=== PATIENT | female | born 1935 | race Caucasian/White ===

== ENCOUNTER 2017-07-09 20:00 | Observation (INO) | payer OTHER ==
[2017-07-09] VITALS (8 sets, daily range): BP systolic 129–149; BP diastolic 64–83; PULSE 60–70; RESP 16–20; TEMP 98.7; O2SAT 97–100
[~2017-07-09 20:00] MED LIST: CEFU1TAB18 PO; LEVO.075 PO
[2017-07-09] MEDS ORDERED: IOHEXOL 350 MG/ML 10 ML VIAL (for RAD DIAG) IVCONTRAST ONE (20:01)
[2017-07-09] MEDS ORDERED: SODIUM CHLORIDE 0.9% FLUSH 10 ML FLUSH IVF PRN (20:15)
--- NOTE | 2017-07-09 20:19 | RADRPT ---
EXAM DATE/TIME: 07/09/2017 20:09 [facility] COMPARISON: No previous studies available for comparison. INDICATIONS : Stroke Alert. Aphasia. RADIATION DOSE: 38.07 CTDIvol (mGy) MEDICAL HISTORY : Non-responsive. SURGICAL HISTORY : Non-responsive. ENCOUNTER: Initial ACUITY: 1 day PAIN SCALE: Non-responsive LOCATION: cranial TECHNIQUE: Multiple contiguous axial images were obtained of the head. Using automated exposure control and adj ustment of the mA and/or kV according to patient size, radiation dose was kept as low as reasonably a chievable to obtain optimal diagnostic quality images. DICOM format image data is available electro nically for review and comparison. FINDINGS: CEREBRUM: The ventricles are normal for age. No evidence of midline shift, mass lesion, hemorrhage or acute in farction. No extra-axial fluid collections are seen. Chronic periventricular white matter changes ar e noted. POSTERIOR FOSSA: The cerebellum and brainstem are intact. The 4th ventricle is midline. The cerebellopontine angle i s unremarkable. EXTRACRANIAL: Mild mucoperiosteal thickening of the maxillary, ethmoid and frontal air cells. SKULL: The calvaria is intact. No evidence of skull fracture. CONCLUSION: 1. No acute intracranial abnormality. 2. Atrophy and chronic white matter changes. 3. Mild sinus disease. Report called to Dr. Fernandez at 8: 14 PM Terrance Dean MD on July 09, 2017 at 20:13 Board Certified Radiologist. This report was verified electronically.
--- NOTE | 2017-07-09 20:26 | PD ---
HPI . Altered mental status Chief Complaint: altered mental status Time Seen by Provider: 20:02 Travel History International Travel<30 days: No Contact w/Intl Traveler<30days: No Traveled to known affect area: No History of Present Illness HPI 82-year-old female history dementia became acutely unresponsive verbally while at dinner. Patient transported via EMS combative and otherwise nonfocal motor, repeating herself only answering yes and no. Extent the patient's dementia unknown. Patient reportedly had some alcohol at dinner. Further history unobtainable from patient secondary to altered mental status [facility] Past Medical History Narrative Medical Past medical history reviewed Asthma: No Blood Disorders: No Heart Rhythm Problems: No Cardiovascular Problems: No High Cholesterol: No Chemotherapy: No Chest Pain: No Congestive Heart Failure: No COPD: No Diabetes: No Diminished Hearing: No Endocrine: Yes Genitourinary: No Immune Disorder: No Musculoskeletal: No Neurologic: No Psychiatric: No Reproductive: No Respiratory: No Radiation Therapy: No Sleep Apnea: No Thyroid Disease: Yes Social History Alcohol Use: Yes Tobacco Use: No (UNABLE TO ASSESS ) Substance Use: No Allergies-Medications (Allergen,Severity, Reaction): Coded Allergies: No Known Allergies (Unverified Allergy, Unknown, 07/09/17) Reported Meds & Prescriptions Reported Meds & Active Scripts Active Synthroid (Levothyroxine Sodium) 75 Mcg Tab 75 Mcg PO DAILY@0600 30 Days Narrative Medication Allergies and medications reviewed Review of Systems General / Constitutional: No: Fever Eyes: No: Visual changes HENT: No: Headaches Cardiovascular: No: Chest Pain or Discomfort Respiratory: No: Shortness of Breath Gastrointestinal: No: Abdominal Pain Genitourinary: No: Dysuria Musculoskeletal: No: Pain Skin: No Rash Neurologic: No: Weakness Psychiatric: No: Depression Endocrine: No: Polydipsia Hematologic/Lymphatic: No: Easy Bruising Physical Exam Exam Limitations: Altered Mental Status, Poor Historian Narrative GENERAL: Awake and confused, combative SKIN: Warm and dry. Color is normal no diaphoresis cyanosis or pallor HEAD: Atraumatic. Normocephalic. EYES: Pupils equal and round 3 mm reactive. No scleral icterus. No injection or drainage. EOMI ENT: No nasal bleeding or discharge. Mucous membranes pink and moist. NECK: Trachea midline. No JVD. Supple full range of motion CARDIOVASCULAR: Regular rate and rhythm. S1-S2 no murmurs or gallops RESPIRATORY: No accessory muscle use. Clear to auscultation. Breath sounds equal bilaterally. GASTROINTESTINAL: Abdomen soft, non-tender, nondistended. Hepatic and splenic margins not palpable. MUSCULOSKELETAL: Extremities without clubbing, cyanosis, or edema. No obvious deformities. NEUROLOGICAL: Awake and alert. Motor grossly nonfocal PSYCHIATRIC: Confused Data Data Last Documented VS Vital Signs Date Time Temp Pulse Resp B/P (MAP) Pulse Ox O2 Delivery O2 Flow Rate FiO2 07/09/17 22:00 70 20 146/83 (104) 99 Nasal Cannula 3.00 07/09/17 20:01 98.7 Orders Orders Electrocardiogram (07/09/17 20:02) Prothrombin Time / Inr (Pt) (07/09/17 20:02) Act Partial Throm Time (Ptt) (07/09/17 20:02) Complete Blood Count With Diff (07/09/17 20:02) Comprehensive Metabolic Panel (07/09/17 20:02) Creatine Kinase (Cpk) (07/09/17 20:02) Drug Screen, Random Urine (07/09/17 20:02) Troponin I (07/09/17 20:02) Urinalysis - C+S If Indicated (07/09/17 20:02) Chest, Single Ap (07/09/17 20:02) Ecg Monitoring (07/09/17 20:02) Iv Access Insert/Monitor (07/09/17 20:02) Oximetry (07/09/17 20:02) Sodium Chloride 0.9% Flush (Ns Flush) (07/09/17 20:15) Ammonia (07/09/17 20:02) Lactic Acid (07/09/17 20:02) Alcohol (Ethanol) (07/09/17 20:02) Ct Brain W/O Iv Contrast(Rout) (07/09/17 ) I-Stat Creatinine (07/09/17 20:02) I-Stat Profile (07/09/17 20:02) Cta Neck W Iv Contrast W 3d (07/09/17 ) Cta Brain W Iv Contrast W 3d (07/09/17 ) Iohexol 350 Inj (Omnipaque 350 Inj) (07/09/17 20:01) Aspirin Chew (Aspirin Chew) (07/09/17 21:41) Aspirin Supp (Aspirin Supp) (07/09/17 21:45) Admit Order (Ed Use Only) (07/09/17 22:15) Labs Laboratory Tests Test 07/09/17 20:06 White Blood Count 5.7 TH/MM3 Red Blood Count 4.04 MIL/MM3 Hemoglobin 12.7 GM/DL Bedside Hemoglobin 13.3 G/DL Hematocrit 38.0 % Bedside Hematocrit 39.0 % Mean Corpuscular Volume 94.1 FL Mean Corpuscular Hemoglobin 31.5 PG Mean Corpuscular Hemoglobin Concent 33.5 % Red Cell Distribution Width 13.7 % Platelet Count 239 TH/MM3 Mean Platelet Volume 7.3 FL Neutrophils (%) (Auto) 43.3 % Lymphocytes (%) (Auto) 40.0 % Monocytes (%) (Auto) 11.6 % Eosinophils (%) (Auto) 4.3 % Basophils (%) (Auto) 0.8 % Neutrophils # (Auto) 2.5 TH/MM3 Lymphocytes # (Auto) 2.3 TH/MM3 Monocytes # (Auto) 0.7 TH/MM3 Eosinophils # (Auto) 0.2 TH/MM3 Basophils # (Auto) 0.0 TH/MM3 CBC Comment DIFF FINAL Differential Comment Prothrombin Time 10.5 SEC Prothromb Time International Ratio 1.0 RATIO Activated Partial Thromboplast Time 21.7 SEC Bedside Sodium 140 MMOL/L Blood Urea Nitrogen 14 MG/DL Creatinine 0.74 MG/DL Random Glucose 125 MG/DL Total Protein 7.6 GM/DL Albumin 3.9 GM/DL Calcium Level 8.6 MG/DL Alkaline Phosphatase 49 U/L Aspartate Amino Transf (AST/SGOT) 15 U/L Alanine Aminotransferase (ALT/SGPT) 21 U/L Total Bilirubin 0.4 MG/DL Sodium Level 137 MEQ/L Potassium Level 3.7 MEQ/L Chloride Level 101 MEQ/L Carbon Dioxide Level 27.8 MEQ/L Bedside Potassium 3.7 MMOL/L Bedside Chloride 98 MMOL/L Anion Gap 8 MEQ/L Bedside Blood Urea Nitrogen 14 MG/DL Bedside Creatinine 0.9 MG/DL Estimat Glomerular Filtration Rate 75 ML/MIN Bedside Glucose 132 MG/DL Lactic Acid Level 2.8 mmol/L Phosphorus Level 2.6 MG/DL Magnesium Level 2.3 MG/DL Ammonia LESS THAN 10 MCMOL/L Total Creatine Kinase 75 U/L Troponin I LESS THAN 0.02 NG/ML Free Thyroxine 1.13 NG/DL Thyroid Stimulating Hormone 3rd Gen 11.700 uIU/ML Ethyl Alcohol Level 213 MG/DL [facility] Medical Decision Making Medical Screen Exam Complete: Yes Emergency Medical Condition: Yes Medical Record Reviewed: Yes Differential Diagnosis Ultimate status, CVA, cranial hemorrhage, acute exacerbation of dementia, intoxication Narrative Course CT head stat negative as per radiology. Repeat neurological exam altered mental status however otherwise nonfocal. Awaiting labs Pt signed out to oncoming ED attending Diagnosis Primary Impression: Altered mental status Qualified Codes: R41.82 - Altered mental status, unspecified Tk Fernandez MD Jul 09, 2017 20:26
--- NOTE | 2017-07-09 20:53 | RADRPT ---
EXAM DATE/TIME: 07/09/2017 20:41 [facility] COMPARISON: No previous studies available for comparison. INDICATIONS : Stroke alert. MEDICAL HISTORY : Unobtainable. SURGICAL HISTORY : Unobtainable. ENCOUNTER: Initial ACUITY: 1 day PAIN SCORE: Non-responsive. LOCATION: Bilateral chest FINDINGS: No acute infiltrate demonstrated. No pleural effusion or pneumothorax. Heart size within normal limits. Thoracic aorta is tortuous and atherosclerotic. Old, healed fracture posteriorly of the right fifth rib. No acute bony abnormality demonstrated. CONCLUSION: No evidence of acute cardiopulmonary disease. Terrance Dean MD on July 09, 2017 at 20:50 Board Certified Radiologist. This report was verified electronically.
[2017-07-09 20:59] LABS: AUTOMATED NEUTROPHIL # 2.5 TH/MM3 (1.8-7.7); BASOPHIL % 0.8 % (0.0-2.0); EOSINOPHIL # 0.2 TH/MM3 (0-0.4); EOSINOPHIL % 4.3 % (0.0-4.0); HEMOGLOBIN 12.7 GM/DL (11.6-15.3); LYMPHOCYTE # 2.3 TH/MM3 (1.0-4.8); MEAN CELL VOLUME 94.1 FL (80.0-100.0); MEAN CORPUSCULAR HEMOGLOBIN 31.5 PG (27.0-34.0); MEAN CORPUSCULAR HGB CONC 33.5 % (32.0-36.0); MEAN PLATELET VOLUME 7.3 FL (7.0-11.0); MONO % 11.6 % (0.0-8.0); MONOCYTE # 0.7 TH/MM3 (0-0.9); NEUT % 43.3 % (16.0-70.0); PLATELET COUNT 239 TH/MM3 (150-450); RED BLOOD COUNT 4.04 MIL/MM3 (4.00-5.30); RED CELL DISTRIBUTION WIDTH 13.7 % (11.6-17.2); WHITE BLOOD COUNT 5.7 TH/MM3 (4.0-11.0)
[2017-07-09 21:07] LABS: PROTHROMBIN TIME - PATIENT 10.5 SEC (9.8-11.6)
--- NOTE | 2017-07-09 21:10 | RADRPT ---
EXAM DATE/TIME: 07/09/2017 20:37 [facility] COMPARISON: CT BRAIN W/O CONTRAST, July 09, 2017, 20:09. INDICATIONS : Stroke Alert. Aphasia. IV CONTRAST: 98 cc Omnipaque 350 (iohexol) IV ; Cumulative dose for multiple exams. RADIATION DOSE: 25.78 CTDIvol (mGy) ; Combined studies MEDICAL HISTORY : Non-responsive. SURGICAL HISTORY : Non-responsive. ENCOUNTER: Initial ACUITY: 1 day PAIN SCALE: Non-responsive LOCATION: cranial TECHNIQUE: Volumetric scanning was performed using a multi-row detector CT scanner. The data was post processed with a variety of visualization algorithms including full volume maximum intensity projection, multi -planar sliding thin slab reformation, curved planar reformation, and surface rendering techniques. Using automated exposure control and adjustment of the mA and/or kV according to patient size, radiat ion dose was kept as low as reasonably achievable to obtain optimal diagnostic quality images. DICO M format image data is available electronically for review and comparison. FINDINGS: There is excellent visualization of the major intracranial arteries out to the second-order branch ve ssels. There is no evidence for aneurysm, vessel truncation or stenosis, and no evidence for vascula r malformation. Congenitally diminutive left P1 segment. Well-developed left posterior communicating. CONCLUSION: No stenosis, aneurysm or other acute abnormality of the intracranial arteries. Terrance Dean MD on July 09, 2017 at 21:06 Board Certified Radiologist. This report was verified electronically.
[2017-07-09 21:14] LABS: ALBUMIN 3.9 GM/DL (3.4-5.0); AST (GOT) 15 U/L (15-37); BICARBONATE 27.8 MEQ/L (21.0-32.0); BLOOD UREA NITROGEN 14 MG/DL (7-18); CALCIUM 8.6 MG/DL (8.5-10.1); CHLORIDE 101 MEQ/L (98-107); CREATININE 0.74 MG/DL (0.50-1.00); GLOMERULAR FILTRATION RATE 75 ML/MIN (>89); GLUCOSE,RANDOM 125 MG/DL (74-106); SODIUM (NA) 137 MEQ/L (136-145)
[2017-07-09 21:15] LABS: ALT (GPT) 21 U/L (10-53)
[2017-07-09 21:19] LABS: ALKALINE PHOSPHATASE 49 U/L (45-117); TOTAL BILIRUBIN ADULT 0.4 MG/DL (0.2-1.0); TOTAL PROTEIN 7.6 GM/DL (6.4-8.2); TROPONIN I LESS THAN 0.02 NG/ML (0.02-0.05)
--- NOTE | 2017-07-09 21:33 | RADRPT ---
EXAM DATE/TIME: 07/09/2017 20:37 [facility] COMPARISON: No previous studies available for comparison. INDICATIONS : Stroke Alert. Aphasia. IV CONTRAST: 98 cc Omnipaque 350 (iohexol) IV ; Cumulative dose for multiple exams. RADIATION DOSE: 25.78 CTDIvol (mGy) ; Combined studies MEDICAL HISTORY : Non-responsive. SURGICAL HISTORY : Non-responsive. ENCOUNTER: Initial ACUITY: 1 day PAIN SCALE: 0/10 LOCATION: carotids Elevated flow velocities and ICA/CCA ratios have been found to correlate with increased degrees of vessel stenosis, calculated as percentage of diameter relative to a normal segment of distal ICA/CCA. TECHNIQUE: Volumetric scanning was performed using a multirow detector CT scanner. The data was post processed with a variety of visualization algorithms including full-volume maximum intensity projection, multip lanar sliding thin-slab reformation, curved-planar reformation, and surface-rendering techniques. Us ing automated exposure control and adjustment of the mA and/or kV according to patient size, radiatio n dose was kept as low as reasonably achievable to obtain optimal diagnostic quality images. DICOM f ormat image data is available electronically for review and comparison. FINDINGS: AORTIC ARCH: There is a three-vessel origin of the great vessels from the aorta. No evidence of ostial narrowing. The aortic arch and origins of the branch vessels are atherosclerotic. RIGHT CAROTID: The common carotid artery is intact. The carotid bulb has slight atherosclerotic plaque without ulcer ation or narrowing. The internal carotid artery lumen is smooth without stenosis. The external carot id artery is intact. LEFT CAROTID: The common carotid artery is intact. The carotid bulb has slight atherosclerotic plaque without ulce ration or narrowing. The internal carotid artery lumen is smooth without stenosis. The external car otid artery is intact. VERTEBRALS: Left side dominant. No stenotic lesions are seen. CONCLUSION: Trace atherosclerosis of both carotid bifurcations. Also diffuse atherosclerosis of the visualized th oracic aorta and proximally of the branch vessels off of the arch. No stenosis, thrombosis or other a cute abnormality. Terrance Dean MD on July 09, 2017 at 21:28 Board Certified Radiologist. This report was verified electronically.
[2017-07-09] MEDS ORDERED: ASPIRIN 81 MG CHEW TAB ONE (21:41)
[2017-07-09] MEDS ORDERED: ASPIRIN 300 MG SUPP RECTAL ONE (21:45)
[2017-07-09] MEDS ORDERED: ASPIRIN 325 MG TAB PO ONE (21:45)
[2017-07-09] MEDS ORDERED: SODIUM CHLOR 0.9% 1000 ML INJ 1,000 ML IV SCH (22:14)
[2017-07-09] MEDS ORDERED: LORazepam 2 MG/ML VIAL IV PUSH PRN ×4 (22:15)
[2017-07-09] MEDS ORDERED: LORazepam 2 MG TAB PO PRN (22:15)
[2017-07-09] MEDS ORDERED: LORazepam 1 MG TAB PO PRN (22:15)
[2017-07-09] MEDS ORDERED: cloNIDine HCL 0.1 MG TAB PO PRN (22:15)
[2017-07-09] MEDS ORDERED: MULTIVITAMIN INJ 10 ML, FOLIC ACID INJ 1 MG in SODIUM CHLORID 0.9% 500 ML INJ 500 ML IV SCH (22:15)
[2017-07-09] MEDS ORDERED: HALOPERIDOL LACTATE 5 MG/ML AMP IM PRN (22:15)
[2017-07-09] MEDS ORDERED: FLUMAZENIL 0.5 MG/5 ML VIAL IV PUSH PRN (22:15)
[2017-07-09] MEDS ORDERED: ONDANSETRON HCL 4 MG/2 ML VIAL IV PUSH PRN (22:15)
--- NOTE | 2017-07-09 22:29 | HHI.HP ---
HPI Service Family Medicine Primary Care Physician Unknown Admission Diagnosis AMS, CVA vs TIA Diagnoses: International Travel<30 Days: No Contact w/Intl Traveler<30days: No Known Affected Area: No History of Present Illness 82 y/o F w/hx of dementia and thyroid disease presenting w/AMS. Per ER report, patient became acutely unresponsive at dinner after 2 glasses of wine. Was combative while on the way to the hospital, repeating yes and no, and left lower extremity drift was observed. Further history not attainable. Patient has been hospitalized in the past for AMS 2/2 alcohol intoxication and UTI. Patient's mental status has improved since admission, she states she is feeling well and is able to follow commands. Endorses pain when one of her extremities is moved. Reports she may have fallen. However, has been able to walk without assistance to the bathroom. Failed swallow eval - unable to follow instructions. Denies nausea or vomiting. 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 Has not seen her since the beginning of this week. Was placed on Aricept. Sister lives at [facility], wants sister to live with her there. Patient was supposed to get an MRI this past Tuesday after being seen by neurologist for dementia. Did not attend MRI and has not been following up with neurologist. PCP is Dr. Robertson. (Evelyn Jenkins MD R1) Review of Systems ROS Limitations: Altered Mental Status (Evelyn Jenkins MD R1) Past Family Social History Past Medical History [facility] Past Surgical History Based on previous reports: Tonsillectomy Appendectomy Reported Medications Levothyroxine (Evelyn Jenkins MD R1) Allergies: Coded Allergies: No Known Allergies (Unverified Allergy, Unknown, 07/09/17) Family History Unable to obtain a complete hx Sister who is living who is healthy Social History Lives alone at [facility] near [facility] she drinks one-two small shots of Vodka per night Quit smoking as a teenager (Evelyn Jenkins MD R1) Physical Exam Vital Signs Vital Signs Date Time Temp Pulse Resp B/P (MAP) Pulse Ox O2 Delivery O2 Flow Rate FiO2 07/09/17 22:00 70 20 146/83 (104) 99 Nasal Cannula 3.00 07/09/17 21:30 60 16 132/67 (88) 100 Nasal Cannula 3.00 07/09/17 21:00 66 16 129/64 (85) 99 Nasal Cannula 3.00 07/09/17 20:45 63 18 149/75 (99) 100 Room Air 3.00 07/09/17 20:30 62 20 145/75 (98) 100 Nasal Cannula 3.00 07/09/17 20:08 63 18 142/71 (94) 99 Nasal Cannula 3.00 07/09/17 20:05 97 Nasal Cannula 3.00 07/09/17 20:01 98.7 64 18 134/68 (90) 97 Room Air 07/09/17 20:00 97 Nasal Cannula 4.00 07/09/17 20:00 97 4.00 Physical Exam GENERAL: Elderly patient SKIN: Cool and dry. HEAD: Atraumatic. Normocephalic. EYES: Pupils equal round and reactive. Extraocular motions intact. No scleral icterus. No injection or drainage. ENT: Dark, black, coffee-ground appearing substance on the tongue, corners of the mouth, and the posterior pharynx. Airway patent. NECK: Trachea midline. No JVD. CARDIOVASCULAR: Regular rate and rhythm without murmurs, gallops, or rubs. RESPIRATORY: Clear to auscultation. Breath sounds equal bilaterally. No wheezes , rales, or rhonchi. GASTROINTESTINAL: Abdomen soft, non-tender, nondistended. No hepato-splenomegaly , or palpable masses. No guarding. MUSCULOSKELETAL: Extremities without edema. Hypertrophy of some of the nails of the hands. No calf tenderness. Negative Homans sign bilaterally. NEUROLOGICAL: Awake and alert. Cranial nerves II through XII intact. Motor and sensory grossly within normal limits. Five out of 5 muscle strength in all muscle groups. Normal speech. Nose to finger testing and heel to aviles testing wnl. Unable to obtain reflexes. Laboratory Laboratory Tests Test 07/09/17 19:25 07/09/17 20:06 White Blood Count 5.7 Red Blood Count 4.04 Hemoglobin 12.7 Bedside Hemoglobin 13.3 Hematocrit 38.0 Bedside Hematocrit 39.0 Mean Corpuscular Volume 94.1 Mean Corpuscular Hemoglobin 31.5 Mean Corpuscular Hemoglobin Concent 33.5 Red Cell Distribution Width 13.7 Platelet Count 239 Mean Platelet Volume 7.3 Neutrophils (%) (Auto) 43.3 Lymphocytes (%) (Auto) 40.0 Monocytes (%) (Auto) 11.6 Eosinophils (%) (Auto) 4.3 Basophils (%) (Auto) 0.8 Neutrophils # (Auto) 2.5 Lymphocytes # (Auto) 2.3 Monocytes # (Auto) 0.7 Eosinophils # (Auto) 0.2 Basophils # (Auto) 0.0 CBC Comment DIFF FINAL Differential Comment Prothrombin Time 10.5 Prothromb Time International Ratio 1.0 Activated Partial Thromboplast Time 21.7 Bedside Sodium 140 Blood Urea Nitrogen 14 Creatinine 0.74 Random Glucose 125 Total Protein 7.6 Albumin 3.9 Calcium Level 8.6 Alkaline Phosphatase 49 Aspartate Amino Transf (AST/SGOT) 15 Alanine Aminotransferase (ALT/SGPT) 21 Total Bilirubin 0.4 Sodium Level 137 Potassium Level 3.7 Chloride Level 101 Carbon Dioxide Level 27.8 Bedside Potassium 3.7 Bedside Chloride 98 Anion Gap 8 Bedside Blood Urea Nitrogen 14 Bedside Creatinine 0.9 Estimat Glomerular Filtration Rate 75 Bedside Glucose 132 Lactic Acid Level 2.8 Ammonia LESS THAN 10 Total Creatine Kinase 75 Troponin I LESS THAN 0.02 Ethyl Alcohol Level 213 (Evelyn Jenkins MD R1) Result Diagram: 07/09/17200507/09/172005 Imaging Last 48 hours Impressions Chest X-Ray 07/09/172001 Signed Impressions: Service Date/Time: Sunday, July 09, 2017 20:41 - CONCLUSION: No evidence of acute cardiopulmonary disease. Terrance Dean MD Neck CTA 07/09/17 0000 Signed Impressions: Service Date/Time: Sunday, July 09, 2017 20:37 - CONCLUSION: Trace atherosclerosis of both carotid bifurcations. Also diffuse atherosclerosis of the visualized thoracic aorta and proximally of the branch vessels off of the arch. No stenosis, thrombosis or other acute abnormality. Terrance Dean MD Head CTA 07/09/17 0000 Signed Impressions: Service Date/Time: Sunday, July 09, 2017 20:37 - CONCLUSION: No stenosis , aneurysm or other acute abnormality of the intracranial arteries. Terrance Dean MD Head CT 07/09/17 0000 Signed Impressions: Service Date/Time: Sunday, July 09, 2017 20:09 - CONCLUSION: 1. No acute intracranial abnormality. 2. Atrophy and chronic white matter changes. 3. Mild sinus disease. Report called to Dr. Fernandez at 8: 14 PM Terrance Dean MD (Evelyn Jenkins MD R1) Caprini VTE Risk Assessment Caprini VTE Risk Assessment: No/Low Risk (score <= 1) Caprini Risk Assessment Model Point Value = 1 Point Value = 2 Point Value = 3 Point Value = 5 Age 41-60 Minor surgery BMI > 25 kg/m2 Swollen legs Varicose veins or History of unexplained or recurrent spontaneous Oral contraceptives or hormone replacement Sepsis (< 1 month) Serious lung disease, including pneumonia (< 1 month) Abnormal pulmonary function Acute myocardial infarction Congestive heart failure (< 1 month) History of inflammatory bowel disease Medical patient at bed rest Age 61-74 Arthroscopic surgery Major open surgery (> 45 min) Laparoscopic surgery (> 45 min) Malignancy Confined to bed (> 72 hours) Immobilizing plaster cast Central venous access Age >= 75 History of VTE Family history of VTE Factor V Leiden Prothrombin [id number] Lupus anticoagulant Anticardiolipin antibodies Elevated serum homocysteine Heparin-induced thrombocytopenia Other congenital or acquired thrombophilia Stroke (< 1 month) Elective arthroplasty Hip, pelvis, or leg fracture Acute spinal cord injury (< 1 month) Prophylaxis Regimen Total Risk Factor Score Risk Level Prophylaxis Regimen 0-1 Low Early ambulation 2 Moderate Order ONE of the following: *Sequential Compression Device (SCD) *Heparin 5000 units SQ BID 3-4 Higher Order ONE of the following medications: *Heparin 5000 units SQ TID *Enoxaparin/Lovenox 40 mg SQ daily (WT < 150 kg, CrCl > 30 mL/min) *Enoxaparin/Lovenox 30 mg SQ daily (WT < 150 kg, CrCl > 10-29 mL/min) *Enoxaparin/Lovenox 30 mg SQ BID (WT < 150 kg, CrCl > 30 mL/min) AND/OR *Sequential Compression Device (SCD) 5 or more Highest Order ONE of the following medications: *Heparin 5000 units SQ TID (Preferred with Epidurals) *Enoxaparin/Lovenox 40 mg SQ daily (WT < 150 kg, CrCl > 30 mL/min) *Enoxaparin/Lovenox 30 mg SQ daily (WT < 150 kg, CrCl > 10-29 mL/min) *Enoxaparin/Lovenox 30 mg SQ BID (WT < 150 kg, CrCl > 30 mL/min) AND *Sequential Compression Device (SCD) (Evelyn Jenkins MD R1) Assessment and Plan Assessment and Plan Patient is an 82 y/o w/hx of Alzeihmer's dementia admitted for AMS 2/2 to UTI and ETOH intoxication. CT of the head negative. Plan to administer antibiotics, IVF, and monitor overnight. Neuro consulted, aware of plan. MRA for tomorrow. Contact: Sister Joi Valdes [phone] Code Status FULL (Evelyn Jenkins MD R1) Attending Attestation The patient has been seen and examined. The chart and all resident notes have been reviewed. I agree that inpatient care is appropriate and that a two midnight stay is expected for the reasons documented in the resident history and physical. I have discussed this with the resident and certify the resident s order for inpatient admission. (Tasia Anderson MD) Problem List: (1) Altered mental status ICD Codes: R41.82 - Altered mental status, unspecified Status: Acute Plan: ETOH elevated Ct and CTA of head and neck not significant for acute injury or stenosis CXR negative UA + TSH elevated at 11.7 - 1bag NS IVF - Resume levothyroxine, patient likely not taking her medications - [facility] protocol - RAlly pack (IV) -cardiac tele - neurochecks -ECG and 2nd troponin pending - urine cx pending - failed swallow study, NPO - ASA 81 mg (2) UTI (urinary tract infection) ICD Codes: N39.0 - Urinary tract infection, site not specified Status: Acute Plan: AMS, +UA Ceftriaxone 1 g daily Urine cx pending (3) Elevated ETOH level ICD Codes: R78.0 - Finding of alcohol in blood Status: Acute Plan: CIWA protocol Rally pack (4) FEN Plan: Fluids: NS IVF 1 bag Diet: NPO Electrolytes: as needed DVT prophy: Lovenox (Evelyn Jenkins MD R1) Evelyn Jenkins MD R1 Jul 09, 2017 22:29 Tasai Anderson MD Jul 10, 2017 09:11
[2017-07-09 23:21] LABS: MAGNESIUM 2.3 MG/DL (1.5-2.5); PHOSPHORUS 2.6 MG/DL (2.5-4.9)
[2017-07-09 23:30] LABS: FREE T4 1.13 NG/DL (0.76-1.46)
[2017-07-09] MEDS: ENOXAPARIN SODIUM 40 MG/0.4 ML SYRINGE SQ SCH (23:34)
[2017-07-09] MEDS: THIAMINE INJ 100 MG in SODIUM CHLORIDE 0.9% INJ 100 ML IV SCH (23:44)
[2017-07-09] MEDS: MULTIVITAMIN INJ 10 ML, FOLIC ACID INJ 1 MG in SODIUM CHLORID 0.9% 500 ML INJ 500 ML IV SCH (23:44)
[2017-07-09 23:55] LABS: BILIRUBIN, URINE NEG (NEG); BLOOD, URINE NEG (NEG); GLUCOSE,URINE NEG (NEG); KETONE, URINE NEG (NEG); MUCUS URINE FEW /lpf (OCC); NITRITE,URINE NEG (NEG); PH, URINE 5.5 (5.0-8.5); SQUAMOUS EPITHELIAL CELL URINE 3 /hpf (0-5); URINE COLOR LIGHT-YELLOW (YELLW/STRAW); URINE LEUKOCYTE ESTERASE LARGE (NEG)
[2017-07-10] VITALS (9 sets, daily range): BP systolic 116–185; BP diastolic 60–92; PULSE 60–78; RESP 15–20; TEMP 98–98.6; O2SAT 95–98
[2017-07-10] MEDS: cefTRIAXone INJ 1,000 MG in SODIUM CHLORIDE 0.9% INJ 100 ML IV SCH (02:04)
[2017-07-10 07:04] LABS: HEMATOCRIT 35.9 % (35.0-46.0); HEMOGLOBIN 12.3 GM/DL (11.6-15.3); MEAN CELL VOLUME 92.9 FL (80.0-100.0); MEAN CORPUSCULAR HEMOGLOBIN 31.8 PG (27.0-34.0); MEAN CORPUSCULAR HGB CONC 34.2 % (32.0-36.0); MEAN PLATELET VOLUME 7.3 FL (7.0-11.0); PLATELET COUNT 216 TH/MM3 (150-450); RED BLOOD COUNT 3.86 MIL/MM3 (4.00-5.30); WHITE BLOOD COUNT 5.1 TH/MM3 (4.0-11.0)
[2017-07-10 07:11] LABS: BICARBONATE 28.9 MEQ/L (21.0-32.0); CALCIUM 8.1 MG/DL (8.5-10.1); CREATININE 0.6 MG/DL (0.50-1.00)
--- NOTE | 2017-07-10 09:14 | HHI.FPPN ---
Subjective Subjective Patient seen and examined with the resident team. Case reviewed and discussed. Please refer to resident H&P for further details regarding HPI ROS, PMH, SurgHx , FH and SocHx In summary, patient is an 82yoF with a reported history of prior hospitalization for AMS related to alcohol presenting with confusion. Per report by the sister, patient was undergoing work-up to include Brain MRI and initiation of Aricept though these have not been done. Patient is seen in the ED this am, reporting improvement. She is unable to tell the medical team anything regarding the events which occurred prompting her hospital stay. She offers no complaints this am, except that she is hungry. NO MCGOWAN, visual changes, speech difficulties. No reported difficulty with swallowing that she is aware of, though she had trouble per nursing last night. [facility] Objective Objective Last Impressions Chest X-Ray 07/09/172001 Signed Impressions: Service Date/Time: Sunday, July 09, 2017 20:41 - CONCLUSION: No evidence of acute cardiopulmonary disease. Terrance Dean MD Neck CTA 07/09/17 Signed Impressions: Service Date/Time: Sunday, July 09, 2017 20:37 - CONCLUSION: Trace atherosclerosis of both carotid bifurcations. Also diffuse atherosclerosis of the visualized thoracic aorta and proximally of the branch vessels off of the arch. No stenosis, thrombosis or other acute abnormality. Terrance Dean MD Head CTA 07/09/17 Signed Impressions: Service Date/Time: Sunday, July 09, 2017 20:37 - CONCLUSION: No stenosis , aneurysm or other acute abnormality of the intracranial arteries. Terrance Dean MD Head CT 07/09/17 Signed Impressions: Service Date/Time: Sunday, July 09, 2017 20:09 - CONCLUSION: 1. No acute intracranial abnormality. 2. Atrophy and chronic white matter changes. 3. Mild sinus disease. Report called to Dr. Fernandez at 8: 14 PM Terrance Dean MD Laboratory Tests - Abnormals Test 07/09/17 19:25 07/09/17 20:06 07/09/17 23:29 07/10/17 04:00 Monocytes (%) (Auto) 11.6 % Eosinophils (%) (Auto) 4.3 % Activated Partial Thromboplast Time 21.7 SEC Random Glucose 125 MG/DL Bedside Chloride 98 MMOL/L Estimat Glomerular Filtration Rate 75 ML/MIN Bedside Glucose 132 MG/DL Lactic Acid Level 2.8 mmol/L Ammonia LESS THAN 10 MCMOL/L Troponin I LESS THAN 0.02 NG/ML LESS THAN 0.02 NG/ML Thyroid Stimulating Hormone 3rd Gen 11.700 uIU/ML Ethyl Alcohol Level 213 MG/DL Urine Turbidity HAZY Urine Leukocyte Esterase LARGE Urine WBC 27 /hpf Urine Mucus FEW /lpf Test 07/10/17 06:08 Red Blood Count 3.86 MIL/MM3 Calcium Level 8.1 MG/DL Vital Signs 07/09/17 07/09/17 07/09/17 07/09/17 20:00 20:00 20:01 20:05 Temp 98.7 Pulse 64 Resp 18 B/P (MAP) 134/68 (90) Pulse Ox 97 97 97 97 O2 Delivery Nasal Cannula Room Air Nasal Cannula O2 Flow Rate 4.00 4.00 3.00 07/09/17 07/09/17 07/09/17 07/09/17 20:08 20:30 20:45 21:00 Pulse 63 62 63 66 Resp 18 20 18 16 B/P (MAP) 142/71 (94) 145/75 (98) 149/75 (99) 129/64 (85) Pulse Ox 99 100 100 99 O2 Delivery Nasal Cannula Nasal Cannula Room Air Nasal Cannula O2 Flow Rate 3.00 3.00 3.00 3.00 07/09/17 07/09/17 07/10/17 07/10/17 21:30 22:00 00:00 02:55 Pulse 60 70 71 70 Resp 16 20 18 18 B/P (MAP) 132/67 (88) 146/83 (104) 116/61 (79) 124/66 (85) Pulse Ox 100 99 98 96 O2 Delivery Nasal Cannula Nasal Cannula Nasal Cannula Room Air O2 Flow Rate 3.00 3.00 3.00 07/10/17 07/10/17 07/10/17 03:21 04:12 07:14 Pulse 69 75 Resp 16 15 16 B/P (MAP) 122/60 (80) 155/78 (103) Pulse Ox 95 95 96 O2 Delivery Room Air Room Air Room Air Physical exam GENERAL: wdwn female, appears younger than stated age SKIN: Warm and dry. No rashes, abrasions. HEAD: Normocephalic. AT EYES: No scleral icterus. No injection or drainage. ENT: OP clear. No evidence of tongue biting or buccal mucosal damage. NECK: Supple, trachea midline. No JVD or lymphadenopathy. CARDIOVASCULAR: Regular rate and rhythm without audible murmurs, gallops, or rubs. RESPIRATORY: Breath sounds equal and clear to auscultation bilaterally. No accessory muscle use. GASTROINTESTINAL: Abdomen soft, non-tender, nondistended. Normal active BS. No rebound. MUSCULOSKELETAL: No cyanosis, or edema. No calf tenderness. BACK: Nontender without obvious deformity. No CVA tenderness. NEURO: Awake and alert. Normal speech. Oriented x 3 (aware she is in the hospital, but not sure which one). Motor and sensation intact and equal bilaterally. Able to spell [id number] backwards. Able to draw a clock. 3 word recall after 5 minutes 0/3 words. Assessment Assessment 82yoF admitted with: Encephalopathy, alcohol-induced vs CVA vs infectious (UTI) vs other Stroke alert called on patient's arrival Hypothyroidism Alcohol dependence ?Dementia PLAN PLAN Stroke protocol Neurology consult MRI Brain Neurochecks Swallow eval PT/OT/ST EEG Resume levothyroxine UA with urine culture CM consult for assistance with discharge planning Patient seen and examined with the resident team. Case reviewed and discussed Agree with plan of care as discussed with me and documented in the resident note. Tasia Anderson MD Jul 10, 2017 09:14
[2017-07-10 10:40] LABS: CHOLESTEROL/ HDL RATIO 3.76 RATIO; HDL CHOLESTEROL 54.5 MG/DL (40.0-60.0)
--- NOTE | 2017-07-10 11:05 | RADRPT ---
EXAM DATE/TIME: 07/10/2017 10:24 [place] COMPARISON: MRI BRAIN W/O CONTRAST, February 22, 2016, 12:03. INDICATIONS : Altered mental status. MEDICAL HISTORY : Hyperparathyroidism. Dementia. SURGICAL HISTORY : Appendectomy. Tonsillectomy. ENCOUNTER: Initial ACUITY: 1 day PAIN SCORE: 0/10 LOCATION: cranial TECHNIQUE: Multiplanar, multisequence MRI of the brain was performed without contrast. FINDINGS: CEREBRUM: Diffuse prominence of the ventricles, sulci, and cisterns indicating diffuse atrophy. No evidence of midline shift, mass lesion, hemorrhage or acute infarction. No extraaxial fluid collections are seen . The pituitary gland and suprasellar cistern are normal in configuration. WHITE MATTER: No significant signal abnormalities are seen in the white matter. POSTERIOR FOSSA: The cerebellum and brainstem are intact. The 4th ventricle is midline. The cerebellopontine angle is unremarkable. The cerebellar tonsils are normal in position. DIFFUSION IMAGING: No focal areas of restricted diffusion are seen. No evidence of acute infarction. EXTRACRANIAL: Moderate mucosal thickening of the maxillary and ethmoid sinuses. CONCLUSION: 1. No acute intracranial findings. 2. Moderate bilateral maxillary and ethmoid sinus disease. Richard Romero MD on July 10, 2017 at 10:59 Board Certified Radiologist. This report was verified electronically.
[2017-07-10] MEDS: PANTOPRAZOLE SODIUM 40 MG VIAL IV PUSH SCH (11:29)
[2017-07-10] MEDS: LEVOTHYROXINE SODIUM 75 MCG TAB PO SCH (11:29)
--- NOTE | 2017-07-10 17:34 | EKG ---
Date Performed: 07/09/2017 Time Performed: 20:28:43 PTAGE: 82 years EKG: Sinus rhythm INCOMPLETE RIGHT BUNDLE BRANCH BLOCK LEFT ANTERIOR FASCICULAR BLOCK NONSPECIFIC T-WAVE ABNORMALITY A BNORMAL ECG PREVIOUS TRACING 02/21/16 Since previous tracing, no significant change noted DOCTOR: Devon Mohr Interpretating Date/Time 07/10/2017 17:33:38
[2017-07-10] MEDS: ENOXAPARIN SODIUM 40 MG/0.4 ML SYRINGE SQ SCH (20:37)
[2017-07-10] MEDS ORDERED: ATORVASTATIN 20 MG TAB PO SCH (21:00)
[2017-07-10] MEDS ORDERED: SODIUM CHLOR 0.9% 1000 ML INJ 1,000 ML IV ONE (22:14)
[2017-07-10] MEDS: THIAMINE INJ 100 MG in SODIUM CHLORIDE 0.9% INJ 100 ML IV SCH (22:39)
[2017-07-10] MEDS: MULTIVITAMIN INJ 10 ML, FOLIC ACID INJ 1 MG in SODIUM CHLORID 0.9% 500 ML INJ 500 ML IV SCH (22:39)
[2017-07-11] MEDS: cefTRIAXone INJ 1,000 MG in SODIUM CHLORIDE 0.9% INJ 100 ML IV SCH (03:08)
[2017-07-11 03:11] VITALS: BP 159/85; PULSE 58; RESP 16; TEMP 98.4; O2SAT 97
[2017-07-11 04:00] VITALS: PULSE 54
--- NOTE | 2017-07-11 05:35 | MG ---
cc: JANUSZ NOVAK Lab No: Date: 07/10/2017 Age: 82 Sex: F Race: DATE OF 1935 MEDICAL HISTORY The patient became unresponsive verbally. Otherwise no focal motor exam.Repeats herself. Ethanol level was elevated. History of tonsillectomy, appendectomy, alcohol use, caffeine use. MEDICATIONS 1. Ceftriaxone. 2. Thiamine. 3. Lovenox. 4. Aspirin. DESCRIPTION Background activity is 8-9 Hz alpha and occurs posterior bilateral and symmetrical. During the recording there was dropout of the background rhythm replaced by theta activity. Hyperventilation was omitted. Photic stimulation did not elicit a driving response. There were no electrographic seizures or epileptiform discharges noted during the recording. INTERPRETATION This is a normal awake and drowsy EEG. There were no electrographic seizures or epileptiform discharges noted during the recording. Clinical correlation is recommended. MD LATOSHA Hackett/STEVE /12:51 AM /5:26 AM MTDEusebia
[2017-07-11] MEDS: LEVOTHYROXINE SODIUM 75 MCG TAB PO SCH (06:20)
[2017-07-11 07:44] VITALS: BP 179/92; PULSE 69; RESP 18; TEMP 98.3; O2SAT 97
[2017-07-11 08:00] VITALS: PULSE 62
[2017-07-11] MEDS ORDERED: ASPIRIN 325 MG TAB PO SCH (09:00)
--- NOTE | 2017-07-11 09:02 | HHI.FPPN ---
Subjective Remarks Ms Padilla is doing well this morning. She slept very well last night. She has no complaints - no dizziness or shortness of breath. She would like to go home today. (Sury Su MD R2) Objective Vitals Vital Signs Date Time Temp Pulse Resp B/P (MAP) Pulse Ox O2 Delivery O2 Flow Rate FiO2 07/11/17 07:44 98.3 69 18 179/92 (121) 97 07/11/17 04:00 54 07/11/17 03:11 98.4 58 16 159/85 (109) 97 07/10/17 23:20 98.0 60 18 161/77 (105) 97 07/10/17 19:41 98.0 68 18 155/73 (100) 97 07/10/17 17:12 98.6 78 20 185/92 (123) 97 07/10/17 15:06 07/10/17 12:00 70 18 145/80 (101) 96 Room Air I/O 07/10/17 07/10/17 07/10/17 07/11/17 07/11/17 07/11/17 07:00 15:00 23:00 07:00 15:00 23:00 Intake Total 711.2 ml 480 ml Balance 711.2 ml 480 ml Intake Oral 480 ml IV Total 711.2 ml # Voids 1 2 # Bowel Movements 1 (Sury Su MD R2) Result Diagram: 07/10/17 0608 07/10/17 0608 Objective Remarks GENERAL: wdwn female, appears younger than stated age SKIN: Warm and dry. No rashes, abrasions. HEAD: Normocephalic. AT EYES: No scleral icterus. No injection or drainage. NECK: Supple, trachea midline. No JVD or lymphadenopathy. CARDIOVASCULAR: Regular rate and rhythm without audible murmurs, gallops, or rubs. RESPIRATORY: Breath sounds equal and clear to auscultation bilaterally. No accessory muscle use. GASTROINTESTINAL: Abdomen soft, non-tender, nondistended. Normal active BS. No rebound. MUSCULOSKELETAL: No cyanosis, or edema. No calf tenderness. BACK: Nontender without obvious deformity. No CVA tenderness. NEURO: Awake and alert. Normal speech. Oriented x 3 (aware she is in the hospital, but thinks she is in [place]). Motor and sensation intact and equal bilaterally. (Sury Su MD R2) A/P Assessment and Plan Patient is an 82 y/o w/hx of Alzeihmer's dementia admitted for AMS 2/2 to UTI and ETOH intoxication. CT of the head negative. Cleared for discharge by neurology. Contact: Sister Joi Valdes [phone]. Discussed with patient's younger sister today 07/11/16 who agrees that she should not live by herself. She would stay with her at [facility] [place], operated by [facility] independent living and she would check to see if she can find a place for her at [facility] [place], operated by [facility]. She would also look into getting a daily aide to help watch her during the day. Seen and examined with Dr. Jeffery. Discussed with Dr. Anderson. Discharge Planning Plan to discharge home with home health today (Sury Su MD R2) Attending Attestation Patient seen and examined. Case reviewed and discussed Agree with plan of care as discussed with me and documented in the resident note. (Tasia Anderson MD) Problem List: (1) Altered mental status ICD Codes: R41.82 - Altered mental status, unspecified Status: Resolved Plan: ETOH elevated at [address] and CTA of head and neck not significant for acute injury or stenosis CXR negative TSH elevated at 11.7 -Resume levothyroxine, patient likely not taking her medications -CIWA protocol -Rally pack (IV) -Neurochecks -ECG did not indicate ACS and troponin normal -Urine culture shows mixed nadia -Daily ASA 81 mg (2) UTI (urinary tract infection) ICD Codes: N39.0 - Urinary tract infection, site not specified Status: Acute Plan: Urine culture shows mixed nadia DC Ceftriaxone (3) Elevated ETOH level ICD Codes: R78.0 - Finding of alcohol in blood Status: Acute Plan: DC CIWA protocol - has consistently scored 0 Rally pack (4) FEN Plan: Fluids: Oral fluids Diet: Regular adult diet Electrolytes: Replete as needed DVT prophy: Lovenox (Sury Su MD R2) Sury Su MD R2 Jul 11, 2017 09:02 Tasia Anderson MD Jul 19, 2017 16:44
[2017-07-11 09:33] LABS: AUTOMATED NEUTROPHIL # 2.7 TH/MM3 (1.8-7.7); BASOPHIL % 0.7 % (0.0-2.0); EOSINOPHIL # 0.4 TH/MM3 (0-0.4); EOSINOPHIL % 7.9 % (0.0-4.0); HEMATOCRIT 37.6 % (35.0-46.0); HEMOGLOBIN 13.1 GM/DL (11.6-15.3); LYMPH % 28.4 % (9.0-44.0); LYMPHOCYTE # 1.5 TH/MM3 (1.0-4.8); MEAN CELL VOLUME 93.8 FL (80.0-100.0); MEAN CORPUSCULAR HEMOGLOBIN 32.6 PG (27.0-34.0); MEAN CORPUSCULAR HGB CONC 34.7 % (32.0-36.0); MEAN PLATELET VOLUME 7.4 FL (7.0-11.0); MONO % 10.1 % (0.0-8.0); MONOCYTE # 0.5 TH/MM3 (0-0.9); NEUT % 52.9 % (16.0-70.0); PLATELET COUNT 240 TH/MM3 (150-450); RED BLOOD COUNT 4.01 MIL/MM3 (4.00-5.30); RED CELL DISTRIBUTION WIDTH 14.1 % (11.6-17.2); WHITE BLOOD COUNT 5.1 TH/MM3 (4.0-11.0)
[2017-07-11] MEDS: PANTOPRAZOLE SODIUM 40 MG VIAL IV PUSH SCH (09:37)
[2017-07-11 10:01] LABS: ALBUMIN 3.2 GM/DL (3.4-5.0); ALT (GPT) 15 U/L (10-53); AST (GOT) 11 U/L (15-37); BICARBONATE 28.2 MEQ/L (21.0-32.0); BLOOD UREA NITROGEN 8 MG/DL (7-18); CALCIUM 8.6 MG/DL (8.5-10.1); CHLORIDE 105 MEQ/L (98-107); CREATININE 0.55 MG/DL (0.50-1.00); GLOMERULAR FILTRATION RATE 105 ML/MIN (>89); GLUCOSE,RANDOM 102 MG/DL (74-106); SODIUM (NA) 139 MEQ/L (136-145)
[2017-07-11 10:07] LABS: ALKALINE PHOSPHATASE 48 U/L (45-117); CALCIUM-PROTEIN CORRECTED 8.8 MG/DL (8.5-10.1); TOTAL BILIRUBIN ADULT 0.4 MG/DL (0.2-1.0); TOTAL PROTEIN 6.8 GM/DL (6.4-8.2)
--- NOTE | 2017-07-11 11:16 | HHI.DCPOC ---
Discharge Care Plan Diagnosis: (1) Acute encephalopathy (2) Alcohol intoxication Goals to Promote Your Health * To prevent worsening of your condition and complications * To maintain your health at the optimal level Directions to Meet Your Goals Take your medications as prescribed Follow your dietary instruction Follow activity as directed Keep your appointments as scheduled Take your immunizations and boosters as scheduled If your symptoms worsen call your PCP, if no PCP go to Urgent Care Center or Emergency Room Smoking is Dangerous to Your Health. Avoid second hand smoke Call the 24-hour hour crisis hotline for domestic abuse at Sury Su MD R2 Jul 11, 2017 11:16
--- NOTE | 2017-07-11 11:53 | HHI.DS ---
Discharge Summary Admission Date Jul 09, 2017 at 22:17 Discharge Date: Jul 11, 2017 Admitting Diagnosis AMS, CVA vs TIA (1) Altered mental status Diagnosis: Principal ICD Codes: R41.82 - Altered mental status, unspecified Status: Resolved (2) UTI (urinary tract infection) Diagnosis: Secondary Plan: ICD Codes: N39.0 - Urinary tract infection, site not specified Status: Acute (3) Elevated ETOH level Diagnosis: Secondary ICD Codes: R78.0 - Finding of alcohol in blood Status: Acute Consultants Neurology Brief History 82 y/o F w/hx of dementia and thyroid disease presenting w/AMS. Per ER report, patient became acutely unresponsive at dinner after 2 glasses of wine. Was combative while on the way to the hospital, repeating yes and no, and left lower extremity drift was observed. Further history not attainable. Patient has been hospitalized in the past for AMS 2/2 alcohol intoxication and UTI. Patient's mental status has improved since admission, she states she is feeling well and is able to follow commands. Endorses pain when one of her extremities is moved. Reports she may have fallen. However, has been able to walk without assistance to the bathroom. Failed swallow eval - unable to follow instructions. Denies nausea or vomiting. 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 Has not seen her since the beginning of this week. Was placed on Aricept. Sister lives at [facility], wants sister to live with her there. Patient was supposed to get an MRI this past Tuesday after being seen by neurologist for dementia. Did not attend MRI and has not been following up with neurologist. PCP is Dr. Robertson. CBC/BMP: 07/11/17 0855 07/11/17 0835 Significant Findings Laboratory Tests Test 07/09/17 20:06 07/09/17 23:29 07/10/17 04:00 07/10/17 06:08 Monocytes (%) (Auto) 11.6 % (0.0-8.0) Eosinophils (%) (Auto) 4.3 % (0.0-4.0) Activated Partial Thromboplast Time 21.7 SEC (24.3-30.1) Random Glucose 125 MG/DL (74-106) Bedside Chloride 98 MMOL/L (102-111) Estimat Glomerular Filtration Rate 75 ML/MIN (>89) Bedside Glucose 132 MG/DL (68-110) Lactic Acid Level 2.8 mmol/L (0.4-2.0) Ammonia LESS THAN 10 MCMOL/L Troponin I LESS THAN 0.02 NG/ML LESS THAN 0.02 NG/ML Thyroid Stimulating Hormone 3rd Gen 11.700 uIU/ML (0.358-3.740) Ethyl Alcohol Level 213 MG/DL (0-5) Urine Turbidity HAZY (CLEAR) Urine Leukocyte Esterase LARGE (NEG) Urine WBC 27 /hpf (0-5) Urine Mucus FEW /lpf (OCC) Red Blood Count 3.86 MIL/MM3 (4.00-5.30) Calcium Level 8.1 MG/DL (8.5-10.1) Cholesterol Level 205 MG/DL (120-200) LDL Cholesterol 132 MG/DL (0-99) Test 07/10/17 12:00 07/11/17 08:35 07/11/17 08:55 Albumin 3.2 GM/DL (3.4-5.0) Aspartate Amino Transf (AST/SGOT) 11 U/L (15-37) Monocytes (%) (Auto) 10.1 % (0.0-8.0) Eosinophils (%) (Auto) 7.9 % (0.0-4.0) Imaging Last Impressions Brain MRI 07/10/17 0000 Signed Impressions: Service Date/Time: Monday, July 10, 2017 10:24 - CONCLUSION: 1. No acute intracranial findings. 2. Moderate bilateral maxillary and ethmoid sinus disease. Richard Romero MD Chest X-Ray 07/09/172001 Signed Impressions: Service Date/Time: Sunday, July 09, 2017 20:41 - CONCLUSION: No evidence of acute cardiopulmonary disease. Terrance Dean MD Neck CTA 07/09/17 0000 Signed Impressions: Service Date/Time: Sunday, July 09, 2017 20:37 - CONCLUSION: Trace atherosclerosis of both carotid bifurcations. Also diffuse atherosclerosis of the visualized thoracic aorta and proximally of the branch vessels off of the arch. No stenosis, thrombosis or other acute abnormality. Terrance Dean MD Head CTA 07/09/17 0000 Signed Impressions: Service Date/Time: Sunday, July 09, 2017 20:37 - CONCLUSION: No stenosis , aneurysm or other acute abnormality of the intracranial arteries. Terrance Dean MD Head CT 07/09/17 0000 Signed Impressions: Service Date/Time: Sunday, July 09, 2017 20:09 - CONCLUSION: 1. No acute intracranial abnormality. 2. Atrophy and chronic white matter changes. 3. Mild sinus disease. Report called to Dr. Fernandez at 8: 14 PM Terrance Dean MD PE at Discharge GENERAL: wdwn female, appears younger than stated age SKIN: Warm and dry. No rashes, abrasions. HEAD: Normocephalic. AT EYES: No scleral icterus. No injection or drainage. NECK: Supple, trachea midline. No JVD or lymphadenopathy. CARDIOVASCULAR: Regular rate and rhythm without audible murmurs, gallops, or rubs. RESPIRATORY: Breath sounds equal and clear to auscultation bilaterally. No accessory muscle use. GASTROINTESTINAL: Abdomen soft, non-tender, nondistended. Normal active BS. No rebound. MUSCULOSKELETAL: No cyanosis, or edema. No calf tenderness. BACK: Nontender without obvious deformity. No CVA tenderness. NEURO: Awake and alert. Normal speech. Oriented x 3 (aware she is in the hospital, but thinks she is in [place]). Motor and sensation intact and equal bilaterally. Hospital Course Patient is an 82 y/o w/hx of Alzeihmer's dementia admitted for AMS 2/2 to UTI and ETOH intoxication. CT/CTA of the head/neck, EEG, and MRI brain were all negative. In addition, she was found to have a possible urinary tract infection and was treated with IV Rocephin 2 days. Urine culture was shown to only grow mixed nadia. During the hospital stay, she was evaluated by speech therapy who determined that she should not live by herself without supervision. We discussed with her younger sister who agreed that she should move to an RESIDENTIAL. She would also like to have a manager home improvement to help at home. She was cleared for discharge by neurology and will be staying with her younger sister for a couple of weeks. She was discharged home in stable condition to go home with home health nursing and physical therapy. She was advised to avoid alcohol as much as possible. Pt Condition on Discharge: Stable Discharge Disposition: Disch w/ Home Health Serv Discharge Instructions DIET: Follow Instructions for: As Tolerated, No Restrictions Speech Therapy-Diet Recommends: Regular Activities you can perform: Weight Bearing as Michelle Activities to Avoid: Driving for 24 hrs, Strenuous Activity Follow up Referrals: Neurology - 1 Week PCP Follow-up - 1 Week Continued Medications: Levothyroxine Sodium (Synthroid) 75 Mcg Tab 75 MCG PO DAILY@0600 for Thyroid for 30 Days, TAB Discontinued Medications: Cefuroxime (Ceftin) 250 Mg Tab 250 MG PO BID for UTI for 3 Days, TAB Sury Su MD R2 Jul 11, 2017 11:53
[2017-07-11 11:56] VITALS: BP 152/74; PULSE 71; RESP 18; TEMP 97.9; O2SAT 97
--- NOTE | 2017-07-11 12:27 | MB ---
cc: [facility] DATE OF CONSULTATION 07/11/2017 REASON FOR CONSULTATION Stroke Alert. HISTORY OF PRESENT ILLNESS I was called to see the patient by the emergency room physician on 07/09/2017 at night for a Stroke Alert. She has a history of dementia, became unresponsive and confused while she was at dinner. Examination was nonfocal. There was resolution of symptoms with head CT scan negative for an acute bleed and there was elevated ethanol level, thus she was not deemed a candidate for IV t-PA, admitted for further workup. The patient has a past medical history of dementia. REVIEW OF SYSTEMS A 12-point review of systems is negative except for what is stated in the HPI. PAST MEDICAL HISTORY 1. Dementia. 2. Thyroid disorder. PAST SURGICAL HISTORY Nonapplicable. SOCIAL HISTORY Drinks alcohol. Does not use tobacco or substances. ALLERGIES No known drug allergies. MEDICATIONS 1. Synthroid. 2. Ceftin. FAMILY HISTORY Non-contributory. PHYSICAL EXAMINATION GENERAL: Awake, alert, oriented, good historian, pleasant. Not in acute distress. HEENT: Atraumatic, normocephalic. Intact hearing, intact vision. CARDIOVASCULAR: Regular rate and rhythm. NECK: Supple. No carotid bruits. No signs of meningeal rotation. GASTROINTESTINAL: Soft abdomen. Not tender. MUSCULOSKELETAL: Extremities without edema, clubbing or cyanosis. NEUROLOGICAL: Awake alert, oriented to time, person and place. Cranial nerves are intact. No dysarthria, no dysphasia. 5/5 bilateral symmetrical upper and lower extremities. Normal tone . No abnormal movement. Sensation is intact throughout bilateral and symmetrical. Reflexes 2+ bilateral and symmetrical. Plantars are bilateral downgoing. [id number] is intact in upper extremities. PSYCHIATRIC: Cooperative. Intact mood and behavior. No visual hallucination. LABORATORY DATA - White blood cells 5.7, hemoglobin 12.7, platelets 239. LFTs normal. Ethyl alcohol is 213, lactic acid 2.8. DIAGNOSTIC IMAGING - Head CT scan - no acute intracranial abnormality, atrophy and chronic white matter changes, mild sinus disease. - Head CTA - No stenosis, aneurysm or acute abnormality of the intracranial arteries. - Neck CTA - Trace atherosclerosis of both carotid bifurcations, diffuse atherosclerosis or visualized thoracic aorta and proximally of the branch vessels of the arch. No stenosis, thrombosis or other abnormality. DIAGNOSTIC IMPRESSION 1. Stroke Alert. 2. Neuro examination nonfocal, full resolution of symptoms. Ethyl alcohol level was elevated and I-score was low, thus the patient was not deemed a candidate for IV t-PA. 3. Encephalopathy has resolved, likely related to metabolic etiology. 4. Dementia. PLAN 1. The patient's exam is nonfocal with no acute neurological abnormalities on neurological investigation. 2. Followup with outpatient neurology for formal evaluation of cognitive function. 3. Followup with primary care physician. 4. I discussed this case with the family physician and agree on the plan. Thank you for the opportunity to participate in the care of your patient. Please call for questions. MD LATOSHA Hackett/SSB /11:53 AM /12:00 PM MTDD
--- NOTE | 2017-07-11 12:39 | HHI.FF ---
Face to Face Verification Diagnosis: (1) Cognitive impairment (2) Acute encephalopathy (3) Alcohol intoxication Physical Therapy Order: Evaluate and Treat, Improve ambulation, Strength and gait training Home Health Nursing Order: Medical education Signs/symptoms of disease process Medication education-adverse effect Nursing assessment with vital signs Home Health Aide Order: To Assist In: Bathing and personal care, glassware verifier and meal prep University Registrar Order: To Evaluate: Living conditions/environment, Support services Order: To Provide: Long range planning, Community services I have seen patient Michelle Padilla on 07/11/17. My clinical findings support the need for the requested home health care services because: Med compliance is questionable Need for psychosocial assistance Impaired cognition/judgement I certify that my clinical findings support that this patient is homebound because: Impaired cognitive ability/safety Unsafe to leave home unassisted Need for psychosocial assistance Sury Su MD R2 Jul 11, 2017 12:39
--- NOTE | 2017-07-11 15:05 | ECHRPT ---
Indication: cva/tia CONCLUSIONS Normal left ventricular size. The left ventricular systolic function is normal with an estimated ejection fraction in the range of 55-60%. [id number] mitral valve regurgitation. Mild aortic valve regurgitation. There is mild tricuspid valve regurgitation. The estimated pulmonary arterial pressure is 52 mmHg. BP: / HR: Rhythm: MEASUREMENTS (Male / Female) Normal Values Technical Quality:Good 2D ECHO LV Diastolic Diameter PLAX 3.8 cm 4.2 - 5.9 / 3.9 - 5.3 cm LV Systolic Diameter PLAX 2.8 cm IVS Diastolic Thickness 1.1 cm 0.6 - 1.0 / 0.6 - 0.9 cm LVPW Diastolic Thickness 0.9 cm 0.6 - 1.0 / 0.6 - 0.9 cm LV Relative Wall Thickness 0.5 RV Internal Dim ED PLAX 2.3 cm M-MODE Aortic Root Diameter MM 3.6 cm LA Systolic Diameter MM 2.1 cm LA Ao Ratio MM 0.6 AV Cusp Separation MM 2.0 cm DOPPLER AI Peak Velocity 379.0 cm/s AI Peak Gradient 57.5 mmHg AI Pressure Half Time 775.0 ms Mitral E Point Velocity 57.3 cm/s Mitral A Point Velocity 81.4 cm/s Mitral E to A Ratio 0.7 LV E' Lateral Velocity 12.3 cm/s Mitral E to LV E' Lateral Ratio 4.7 LV E' Septal Velocity 9.7 cm/s Mitral E to LV E' Septal Ratio 5.9 TR Peak Velocity 324.0 cm/s TR Peak Gradient 42.0 mmHg Right Atrial Pressure 10.0 mmHg Pulmonary Artery Systolic Pressu 52.0 mmHg Right Ventricular Systolic Press 52.0 mmHg FINDINGS LEFT VENTRICLE Normal left ventricular size. The left ventricular systolic function is normal with an estimated ejection fraction in the range of 55-60%. RIGHT VENTRICLE Normal right ventricular size and systolic function. LEFT ATRIUM The left atrial size is normal. RIGHT ATRIUM The right atrial size is normal. ATRIAL SEPTUM Normal atrial septal thickness without atrial level shunting by limited color doppler interrogation. AORTA The aortic root and proximal ascending aorta are normal in size on limited imaging. MITRAL VALVE Structurally normal mitral valve. [id number] mitral valve regurgitation. AORTIC VALVE Trileaflet aortic valve. Mild aortic valve regurgitation. TRICUSPID VALVE Structurally normal tricuspid valve. There is mild tricuspid valve regurgitation. The estimated pulmonary arterial pressure is 52 mmHg. PULMONARY VALVE No pulmonary valve regurgitation or stenosis. VESSELS The inferior vena cava is normal in size. PERICARDIUM No pericardial effusion. Chico Casarez MD (Electronically Signed) Final Date:11 July 2017 15:05
[2017-07-13] MEDS ORDERED: THIAMINE HCL 100 MG TAB PO SCH (09:00)
== END 2017-07-11 15:42 | disposition home or self-care (01) ==
LOC: NEPE 20:00 → NEDA 22:17 → NEDH 07-10 02:25 → NEDA 07-10 02:57 → NEPHCDU 07-10 15:15
PROVIDERS: ADMIT Family Medicine; ATTEND Family Medicine
DX: R41.82 Altered mental status, unspecified (principal); N39.0 Urinary tract infection, site not specified; F10.229 Alcohol dependence with intoxication, unspecified; Y90.7 Blood alcohol level of 200-239 mg/100 ml; G93.40 Encephalopathy, unspecified; I45.10 Unspecified right bundle-branch block; I44.4 Left anterior fascicular block; R94.31 Abnormal electrocardiogram [ECG] [EKG]; G30.9 Alzheimer's disease, unspecified; F02.80 Dementia in other diseases classified elsewhere, unspecified severity, without behavioral disturbance, psychotic disturbance, mood disturbance, and anxiety; E03.9 Hypothyroidism, unspecified; Z87.891 Personal history of nicotine dependence; Z79.899 Other long term (current) drug therapy
CPT/HCPCS: 70450; 70496; 70498; 70551; 71045; 80048; 80053; 80061; 80307; 81001; 82140; 82435; 82550; 82565; 82947; 82948; 83605; 83735; 84100; 84132; 84155; 84295; 84439; 84443; 84484; 84520; 85025; 85027; 85610; 85730; 87086; 92610; 93005; 93306; 95819; 96125; 96365; 96366; 96367; 96368; 96372; 96375; 96376; 97162; 97166; 99285; C9113; G0378; G8987; G8988; G8996; G8997; G8998; G9168; G9169; G9170; J0696; J1650; J3411; J7030; J7040; Q9967

== ENCOUNTER 2017-07-16 13:52 | Inpatient (IN) | payer OTHER, MEDICARE ==
[2017-07-16] VITALS (7 sets, daily range): BP systolic 141–169; BP diastolic 64–86; PULSE 54–60; RESP 16–20; TEMP 97.8–98.4; O2SAT 98–100
[~2017-07-16] VITALS: Ht 160 cm; Wt 57.7 kg
[~2017-07-16 13:52] MED LIST changes: -CEFU1TAB18 PO
[2017-07-16] MEDS ORDERED: SODIUM CHLOR 0.9% 1000 ML INJ 1,000 ML IV ONE (14:05)
[2017-07-16] MEDS ORDERED: SODIUM CHLORIDE 0.9% FLUSH 10 ML FLUSH IVF PRN (14:15)
[2017-07-16] MEDS ORDERED: LEVO.075 PO (14:22)
--- NOTE | 2017-07-16 14:31 | RADRPT ---
EXAM DATE/TIME: 07/16/2017 14:13 [facility] COMPARISON: CT BRAIN W/O CONTRAST, July 09, 2017, 20:09. INDICATIONS : Seizure today. RADIATION DOSE: 44.07 CTDIvol (mGy) MEDICAL HISTORY : Hyperparathyroidism. SURGICAL HISTORY : Tonsillectomy. ENCOUNTER: Initial ACUITY: 1 day PAIN SCALE: 0/10 LOCATION: cranial TECHNIQUE: Multiple contiguous axial images were obtained of the head. Using automated exposure control and adj ustment of the mA and/or kV according to patient size, radiation dose was kept as low as reasonably a chievable to obtain optimal diagnostic quality images. DICOM format image data is available electro nically for review and comparison. FINDINGS: There is no evidence for intracranial hemorrhage, mass effect, mass lesions, or edema. The visualize d bony structures appear intact. Slight degree of brain atrophy is seen. Slight periventricular whit e matter changes are seen nonspecific mostly consistent with chronic small vessel ischemic changes. There are no signs of acute infarction for technique. There is slight scalp swelling in the right fro ntal region. CONCLUSION: Slight atrophic and small vessel ischemic changes without any evidence for acute hemorrhage or mass effect, slight scalp swelling. Alta Mast MD on July 16, 2017 at 14:27 Board Certified Radiologist. This report was verified electronically.
[2017-07-16 15:05] LABS: AUTOMATED NEUTROPHIL # 8.4 TH/MM3 (1.8-7.7); BASOPHIL # 0.1 TH/MM3 (0-0.2); BASOPHIL % 0.5 % (0.0-2.0); EOSINOPHIL # 0.2 TH/MM3 (0-0.4); EOSINOPHIL % 1.8 % (0.0-4.0); HEMATOCRIT 38.8 % (35.0-46.0); HEMOGLOBIN 13.3 GM/DL (11.6-15.3); LYMPH % 16.4 % (9.0-44.0); LYMPHOCYTE # 1.8 TH/MM3 (1.0-4.8); MEAN CELL VOLUME 95.1 FL (80.0-100.0); MEAN CORPUSCULAR HEMOGLOBIN 32.5 PG (27.0-34.0); MEAN CORPUSCULAR HGB CONC 34.2 % (32.0-36.0); MEAN PLATELET VOLUME 7.9 FL (7.0-11.0); MONO % 5.2 % (0.0-8.0); MONOCYTE # 0.6 TH/MM3 (0-0.9); NEUT % 76.1 % (16.0-70.0); PLATELET COUNT 271 TH/MM3 (150-450); RED BLOOD COUNT 4.09 MIL/MM3 (4.00-5.30); RED CELL DISTRIBUTION WIDTH 13.9 % (11.6-17.2); WHITE BLOOD COUNT 11.1 TH/MM3 (4.0-11.0)
[2017-07-16 15:13] LABS: BILIRUBIN, URINE NEG (NEG); BLOOD, URINE NEG (NEG); GLUCOSE,URINE NEG (NEG); HYALINE CAST, URINE 1 /lpf (RARE); KETONE, URINE NEG (NEG); MUCUS URINE FEW /lpf (OCC); NITRITE,URINE NEG (NEG); PH, URINE 5.5 (5.0-8.5); URINE COLOR YELLOW (YELLW/STRAW); URINE LEUKOCYTE ESTERASE NEG (NEG)
[2017-07-16 15:16] LABS: PROTHROMBIN TIME - PATIENT 10.3 SEC (9.8-11.6)
[2017-07-16 15:25] LABS: ALKALINE PHOSPHATASE 50 U/L (45-117); TOTAL BILIRUBIN ADULT 0.5 MG/DL (0.2-1.0); TOTAL PROTEIN 7.2 GM/DL (6.4-8.2); TROPONIN I LESS THAN 0.02 NG/ML (0.02-0.05)
[2017-07-16 15:27] LABS: ALBUMIN 3.7 GM/DL (3.4-5.0); ALT (GPT) 25 U/L (10-53); AST (GOT) 23 U/L (15-37); BLOOD UREA NITROGEN 11 MG/DL (7-18); CALCIUM 8.4 MG/DL (8.5-10.1); CHLORIDE 101 MEQ/L (98-107); CREATININE 0.72 MG/DL (0.50-1.00); GLOMERULAR FILTRATION RATE 77 ML/MIN (>89); GLUCOSE,RANDOM 165 MG/DL (74-106); SODIUM (NA) 137 MEQ/L (136-145)
--- NOTE | 2017-07-16 16:48 | PD ---
HPI Chief Complaint: Seizure Time Seen by Provider: 14:01 Travel History International Travel<30 days: No Contact w/Intl Traveler<30days: No Traveled to known affect area: No History of Present Illness HPI Patient is an 82-year-old female brought in by EMS due to seizure activity. Patient was recently in the hospital due to AMS and was discharged a week ago. Patient is unable to provide any history. Per her sister, who she has been living with, she was doing well. She is not sure if she ate today, but they went to case picker some clothes from her house and her sister believes she fell because she saw her getting up from the ground when she walked into the room. She says she saw her have general shaking movements a little while later when they had gone back to her house. She says that she has been follow with neurology due to memory issues, but has never had any seizures. Until this episode, she was acting like her normal self. PFSH Past Medical History Asthma: No Blood Disorders: No Heart Rhythm Problems: No Cardiovascular Problems: No High Cholesterol: No Chemotherapy: No Chest Pain: No Congestive Heart Failure: No COPD: No Diabetes: No Diminished Hearing: No Endocrine: Yes Genitourinary: No Immune Disorder: No Medical other: Yes Musculoskeletal: No Neurologic: No Psychiatric: No Reproductive: No Respiratory: No Radiation Therapy: No Sleep Apnea: No Thyroid Disease: Yes (HYPERPARATHYROID) Tetanus Vaccination: > 5 Years Influenza Vaccination: Yes ?: Not Past Surgical History Other Surgery: Yes (APPENDECTOMY AND TONSILLECTOMY) Social History Alcohol Use: Yes (ocassionally) Tobacco Use: No Substance Use: No Allergies-Medications (Allergen,Severity, Reaction): Coded Allergies: No Known Allergies (Verified Allergy, Unknown, 07/16/17) Reported Meds & Prescriptions Reported Meds & Active Scripts Active Reported Synthroid (Levothyroxine Sodium) 75 Mcg Tab 75 Mcg PO DAILY Review of Systems ROS Limitations: Clinical Condition, Altered Mental Status Physical Exam Narrative GENERAL: Awake, not answering questions. SKIN: Focused skin assessment warm/dry. No signs of infection. HEAD: Atraumatic. Normocephalic. EYES: Pupils round and reactive, left pupil appears larger than the right. No scleral icterus. EOMI. ENT: Mucous membranes pink and moist. NECK: Trachea midline. No JVD. CARDIOVASCULAR: Regular rate and rhythm. No murmur appreciated. RESPIRATORY: No accessory muscle use. Clear to auscultation. Breath sounds equal bilaterally. GASTROINTESTINAL: Abdomen soft, non-tender, nondistended. MUSCULOSKELETAL: No obvious deformities. No clubbing. No cyanosis. No edema. NEUROLOGICAL: Awake and alert, does not answer questions appropriately. No obvious cranial nerve deficits. Motor grossly within normal limits. Data Data Last Documented VS Vital Signs Date Time Temp Pulse Resp B/P (MAP) Pulse Ox O2 Delivery O2 Flow Rate FiO2 07/16/17 16:22 97.8 60 17 147/65 (92) 100 Nasal Cannula 2.[address] Brain W/O Iv Contrast(Rout) (07/16/17 ) Complete Blood Count With Diff (07/16/17 14:05) Alcohol (Ethanol) (07/16/17 14:05) Drug Screen, Random Urine (07/16/17 14:05) Electrocardiogram (07/16/17 ) Blood Glucose (07/16/17 14:05) Ecg Monitoring (07/16/17 14:05) Iv Access Insert/Monitor (07/16/17 14:05) Oximetry (07/16/17 14:05) Oxygen Administration (07/16/17 14:05) Comprehensive Metabolic Panel (07/16/17 14:05) Sodium Chlor 0.9% 1000 Ml Inj (Ns 1000 M (07/16/17 14:05) Sodium Chloride 0.9% Flush (Ns Flush) (07/16/17 14:15) Ua Includes Microscopic (07/16/17 14:05) Lactic Acid (07/16/17 14:05) Troponin I (07/16/17 14:05) Act Partial Throm Time (Ptt) (07/16/17 14:05) Prothrombin Time / Inr (Pt) (07/16/17 14:05) Cath For Specimen (07/16/17 14:42) Admit Order (Ed Use Only) (07/16/17 ) Labs Laboratory Tests Test 07/16/17 14:25 07/16/17 14:28 07/16/17 14:40 White Blood Count 11.1 TH/MM3 Red Blood Count 4.09 MIL/MM3 Hemoglobin 13.3 GM/DL Hematocrit 38.8 % Mean Corpuscular Volume 95.1 FL Mean Corpuscular Hemoglobin 32.5 PG Mean Corpuscular Hemoglobin Concent 34.2 % Red Cell Distribution Width 13.9 % Platelet Count 271 TH/MM3 Mean Platelet Volume 7.9 FL Neutrophils (%) (Auto) 76.1 % Lymphocytes (%) (Auto) 16.4 % Monocytes (%) (Auto) 5.2 % Eosinophils (%) (Auto) 1.8 % Basophils (%) (Auto) 0.5 % Neutrophils # (Auto) 8.4 TH/MM3 Lymphocytes # (Auto) 1.8 TH/MM3 Monocytes # (Auto) 0.6 TH/MM3 Eosinophils # (Auto) 0.2 TH/MM3 Basophils # (Auto) 0.1 TH/MM3 CBC Comment DIFF FINAL Differential Comment Prothrombin Time 10.3 SEC Prothromb Time International Ratio 1.0 RATIO Activated Partial Thromboplast Time 23.0 SEC Blood Urea Nitrogen 11 MG/DL Creatinine 0.72 MG/DL Random Glucose 165 MG/DL Total Protein 7.2 GM/DL Albumin 3.7 GM/DL Calcium Level 8.4 MG/DL Alkaline Phosphatase 50 U/L Aspartate Amino Transf (AST/SGOT) 23 U/L Alanine Aminotransferase (ALT/SGPT) 25 U/L Total Bilirubin 0.5 MG/DL Sodium Level 137 MEQ/L Potassium Level 4.2 MEQ/L Chloride Level 101 MEQ/L Carbon Dioxide Level 30.0 MEQ/L Anion Gap 6 MEQ/L Estimat Glomerular Filtration Rate 77 ML/MIN Troponin I LESS THAN 0.02 NG/ML Ethyl Alcohol Level LESS THAN 3 MG/DL Lactic Acid Level 2.0 mmol/L Urine Color YELLOW Urine Turbidity CLEAR Urine pH 5.5 Urine Specific [place] 1.014 Urine Protein 30 mg/dL Urine Glucose (UA) NEG mg/dL Urine Ketones NEG mg/dL Urine Occult Blood NEG Urine Nitrite NEG Urine Bilirubin NEG Urine Urobilinogen LESS THAN 2.0 MG/DL Urine Leukocyte Esterase NEG Urine RBC 1 /hpf Urine WBC 1 /hpf Urine Hyaline Casts 1 /lpf Urine Mucus FEW /lpf MDM Medical Decision Making Medical Screen Exam Complete: Yes Emergency Medical Condition: Yes Medical Record Reviewed: Yes Interpretation(s) ECG shows sinus bradycardia at 57, left anterior fascicular block Differential Diagnosis Electrolyte abnormality versus intracranial pathology versus infection Narrative Course Patient is an 82-year-old female comes in due to seizure activity. Patient was given Ativan by EMS, she is not awake enough to provide any history. In the exam room, she had another seizure and was given another 2 mg of Ativan, that EMS had with them already drawn up. Patient was taken to CT. CT of her head showed no acute abnormalities. Last [address] 07/16/17 0000 Signed Impressions: Service Date/Time: Tuesday, July 16, 2017 14:13 - CONCLUSION: Slight atrophic and small vessel ischemic changes without any evidence for acute hemorrhage or mass effect, slight scalp swelling. Alta Mast MD Labs drawn show no acute abnormalities. Patient did not have any further seizure activity. EMS reports that she had about 4 seizures in the time that they were called to the time that they arrived at the hospital. It is unclear why she is having these new onset seizures. She will be admitted for further workup. Diagnosis Primary Impression: New onset seizure Admitting Information Admitting Physician Requests: Admit Katlyn Nichole MD Jul 16, 2017 16:48
[2017-07-16] MEDS ORDERED: SODIUM CHLORIDE 0.9% FLUSH 10 ML FLUSH IV FLUSH PRN (19:30)
[2017-07-16] MEDS ORDERED: ACETAMINOPHEN 325 MG TAB PO PRN (19:30)
[2017-07-16] MEDS ORDERED: LORazepam 2 MG/ML VIAL IV PUSH PRN (19:30)
[2017-07-16] MEDS ORDERED: levETIRAcetam INJ 100 ML IV ONE (19:45)
[2017-07-16] MEDS: SODIUM CHLORIDE 0.9% FLUSH 10 ML FLUSH IV FLUSH SCH (21:10)
--- NOTE | 2017-07-16 23:02 | HHI.HP ---
[facility] Ahmet Robertson M.D. Admission Diagnosis multiple seizures Diagnoses: Chief Complaint: Seizures Travel History International Travel<30 Days: No Contact w/Intl Traveler <30 Da: No Traveled to Known Affected Are: No History of Present Illness 82 y/o female with a history of Dementia, and hypothyroid presented to the ED after she had a fall and seizure activity. Patient states she was walking outside when she tripped on some jayesh and fell, hitting the right side of her head. She states she was told she had a seizure. Per EMS report patient had 4 seizures in route with Ativan given. Per ER physician the patient's sister said she might have fallen in the house. Patient states prior to fall she was a little dizzy. Denies any chest pain or sob. She was seen by her neurologist outpatient and was started on Aricept 3 days ago. Patient also states she drinks every day but has not had a drink in 2 days. Review of Systems Except as stated in HPI: all other systems reviewed are Neg Past Family Social History Past Medical History Hypothyroid Dementia Past Surgical History Tonsillectomy Appendectomy Reported Medications Reported Meds & Active Scripts Active Reported Synthroid (Levothyroxine Sodium) 75 Mcg Tab 75 Mcg PO DAILY Allergies: Coded Allergies: No Known Allergies (Verified Allergy, Unknown, 07/16/17) Active Ordered Medications Current Medications Medications (Trade) Dose Ordered Sig/Konstantin Route Start Time Stop Time Status Last Admin (NS Flush) 2 ml UNSCH PRN IV FLUSH 07/16/17 19:30 (NS Flush) 2 ml BID IV FLUSH 07/16/17 21:00 07/16/17 21:10 (Ativan Inj) 2 mg Q10M PRN IV PUSH 07/16/17 19:30 (Tylenol) 650 mg Q4H PRN PO 07/16/17 19:30 (Keppra) 500 mg Q12HR PO 07/17/17 09:00 Family History Patient denies any family history, no heart disease or cancer. Social History Patient lives alone Tobacco use: Denies Alcohol use: Daily Physical Exam Vital Signs Vital Signs Date Time Temp Pulse Resp B/P (MAP) Pulse Ox O2 Delivery O2 Flow Rate FiO2 07/16/17 20:49 98.4 54 18 141/66 (91) 98 07/16/17 20:31 07/16/17 18:01 97.8 58 16 145/64 (91) 99 Nasal Cannula 2.00 07/16/17 16:22 97.8 60 17 147/65 (92) 100 Nasal Cannula 2.00 07/16/17 14:43 58 20 147/65 (92) 100 Nasal Cannula 2.00 07/16/17 14:30 58 20 169/86 (113) 99 Nasal Cannula 2.00 07/16/17 14:09 98 Nasal Cannula 2.00 07/16/17 14:09 20 98 Nasal Cannula 2.00 07/16/17 14:02 58 18 98 Nasal Cannula 2.00 07/16/17 14:02 97.8 58 17 169/86 (113) 98 Physical Exam GENERAL: This is a well-nourished, well-developed patient, in no apparent distress. SKIN: No rashes, ecchymoses or lesions. Cool and dry. HEAD: Atraumatic. Normocephalic. EYES: Pupils equal round and reactive. ENT: Nose without bleeding, purulent drainage or septal hematoma. Airway patent. NECK: Trachea midline. No JVD CARDIOVASCULAR: Regular rate and rhythm without murmurs, gallops, or rubs. RESPIRATORY: Clear to auscultation. Breath sounds equal bilaterally. No wheezes , rales, or rhonchi. GASTROINTESTINAL: Abdomen soft, non-tender, nondistended. No hepato-splenomegaly , or palpable masses. No guarding. MUSCULOSKELETAL: Extremities without clubbing, cyanosis, or edema. No joint tenderness, effusion, or edema noted. No calf tenderness. NEUROLOGICAL: Awake and alert. Motor and sensory grossly within normal limits. Normal speech. Laboratory Laboratory Tests Test 07/16/17 14:25 07/16/17 14:28 07/16/17 14:40 White Blood Count 11.1 Red Blood Count 4.09 Hemoglobin 13.3 Hematocrit 38.8 Mean Corpuscular Volume 95.1 Mean Corpuscular Hemoglobin 32.5 Mean Corpuscular Hemoglobin Concent 34.2 Red Cell Distribution Width 13.9 Platelet Count 271 Mean Platelet Volume 7.9 Neutrophils (%) (Auto) 76.1 Lymphocytes (%) (Auto) 16.4 Monocytes (%) (Auto) 5.2 Eosinophils (%) (Auto) 1.8 Basophils (%) (Auto) 0.5 Neutrophils # (Auto) 8.4 Lymphocytes # (Auto) 1.8 Monocytes # (Auto) 0.6 Eosinophils # (Auto) 0.2 Basophils # (Auto) 0.1 CBC Comment DIFF FINAL Differential Comment Prothrombin Time 10.3 Prothromb Time International Ratio 1.0 Activated Partial Thromboplast Time 23.0 Blood Urea Nitrogen 11 Creatinine 0.72 Random Glucose 165 Total Protein 7.2 Albumin 3.7 Calcium Level 8.4 Alkaline Phosphatase 50 Aspartate Amino Transf (AST/SGOT) 23 Alanine Aminotransferase (ALT/SGPT) 25 Total Bilirubin 0.5 Sodium Level 137 Potassium Level 4.2 Chloride Level 101 Carbon Dioxide Level 30.0 Anion Gap 6 Estimat Glomerular Filtration Rate 77 Troponin I LESS THAN 0.02 Thyroid Stimulating Hormone 3rd Gen 15.500 Ethyl Alcohol Level LESS THAN 3 Lactic Acid Level 2.0 Urine Color YELLOW Urine Turbidity CLEAR Urine pH 5.5 Urine Specific [place] 1.014 Urine Protein 30 Urine Glucose (UA) NEG Urine Ketones NEG Urine Occult Blood NEG Urine Nitrite NEG Urine Bilirubin NEG Urine Urobilinogen LESS THAN 2.0 Urine Leukocyte Esterase NEG Urine RBC 1 Urine WBC 1 Urine Hyaline Casts 1 Urine Mucus FEW Urine Opiates Screen NEG Urine Barbiturates Screen NEG Urine Amphetamines Screen NEG Urine Benzodiazepines Screen NEG Urine Cocaine Screen NEG Urine Cannabinoids Screen NEG Result Diagram: 07/16/17 1425 07/16/17 1425 Imaging Last Impressions Head CT 07/16/17 0000 Signed Impressions: Service Date/Time: Sunday, July 16, 2017 14:13 - CONCLUSION: Slight atrophic and small vessel ischemic changes without any evidence for acute hemorrhage or mass effect, slight scalp swelling. Alta Mast MD Caprini VTE Risk Assessment Caprini VTE Risk Assessment: No/Low Risk (score <= 1) Caprini Risk Assessment Model Point Value = 1 Point Value = 2 Point Value = 3 Point Value = 5 Age 41-60 Minor surgery BMI > 25 kg/m2 Swollen legs Varicose veins or History of unexplained or recurrent spontaneous Oral contraceptives or hormone replacement Sepsis (< 1 month) Serious lung disease, including pneumonia (< 1 month) Abnormal pulmonary function Acute myocardial infarction Congestive heart failure (< 1 month) History of inflammatory bowel disease Medical patient at bed rest Age 61-74 Arthroscopic surgery Major open surgery (> 45 min) Laparoscopic surgery (> 45 min) Malignancy Confined to bed (> 72 hours) Immobilizing plaster cast Central venous access Age >= 75 History of VTE Family history of VTE Factor V Leiden Prothrombin 10036G Lupus anticoagulant Anticardiolipin antibodies Elevated serum homocysteine Heparin-induced thrombocytopenia Other congenital or acquired thrombophilia Stroke (< 1 month) Elective arthroplasty Hip, pelvis, or leg fracture Acute spinal cord injury (< 1 month) Prophylaxis Regimen Total Risk Factor Score Risk Level Prophylaxis Regimen 0-1 Low Early ambulation 2 Moderate Order ONE of the following: *Sequential Compression Device (SCD) *Heparin 5000 units SQ BID 3-4 Higher Order ONE of the following medications: *Heparin 5000 units SQ TID *Enoxaparin/Lovenox 40 mg SQ daily (WT < 150 kg, CrCl > 30 mL/min) *Enoxaparin/Lovenox 30 mg SQ daily (WT < 150 kg, CrCl > 10-29 mL/min) *Enoxaparin/Lovenox 30 mg SQ BID (WT < 150 kg, CrCl > 30 mL/min) AND/OR *Sequential Compression Device (SCD) 5 or more Highest Order ONE of the following medications: *Heparin 5000 units SQ TID (Preferred with Epidurals) *Enoxaparin/Lovenox 40 mg SQ daily (WT < 150 kg, CrCl > 30 mL/min) *Enoxaparin/Lovenox 30 mg SQ daily (WT < 150 kg, CrCl > 10-29 mL/min) *Enoxaparin/Lovenox 30 mg SQ BID (WT < 150 kg, CrCl > 30 mL/min) AND *Sequential Compression Device (SCD) Assessment and Plan Problem List: (1) New onset seizure ICD Code: R56.9 - Unspecified convulsions Status: Acute Assessment and Plan 82 y/o female with a history of Dementia, and hypothyroid presented to the ED after she had a fall and seizure activity. Seizures new onset, possible ETOH withdrawal vs head injury, patient states she didn't have a drink the past couple nights Head CT reviewed and shows no acute abnormality -Keppra IV x 1 -Ativan IV PRN -Seizure precautions -Consult neurology for recommendation -EEG ordered Hypothyroid, TSH 15.5 -T4 ordered -Resume home medication EtOH abuse -CIWA protocol -Withdrawal precautions -Folate and thiamine ordered DVT prophylaxis: SCDs Discussed Condition With Patient Physician Certification 2 Midnight Certification Type: Admission for Inpatient Services Order for Inpatient Services The services are ordered in accordance with Medicare regulations or non- Medicare payer requirements, as applicable. In the case of services not specified as inpatient-only, they are appropriately provided as inpatient services in accordance with the 2-midnight benchmark. Estimated LOS (days): 2 days is the estimated time the patient will need to remain in the hospital, assuming treatment plan goals are met and no additional complications. Post-Hospital Plan: Not yet determined Kelly Stevens Jul 16, 2017 23:02
[2017-07-17] VITALS (9 sets, daily range): BP systolic 125–156; BP diastolic 60–81; PULSE 57–75; RESP 17–18; TEMP 97.2–98.4; O2SAT 95–98
[2017-07-17] MEDS: LEVOTHYROXINE SODIUM 75 MCG TAB PO SCH (05:53)
[2017-07-17 07:22] LABS: AUTOMATED NEUTROPHIL # 4.1 TH/MM3 (1.8-7.7); BASOPHIL # 0.1 TH/MM3 (0-0.2); BASOPHIL % 0.9 % (0.0-2.0); EOSINOPHIL # 0.2 TH/MM3 (0-0.4); EOSINOPHIL % 3.8 % (0.0-4.0); HEMATOCRIT 36.7 % (35.0-46.0); HEMOGLOBIN 12.3 GM/DL (11.6-15.3); LYMPH % 18.1 % (9.0-44.0); LYMPHOCYTE # 1.1 TH/MM3 (1.0-4.8); MEAN CELL VOLUME 94.5 FL (80.0-100.0); MEAN CORPUSCULAR HEMOGLOBIN 31.7 PG (27.0-34.0); MEAN CORPUSCULAR HGB CONC 33.5 % (32.0-36.0); MEAN PLATELET VOLUME 7.4 FL (7.0-11.0); MONO % 9.9 % (0.0-8.0); MONOCYTE # 0.6 TH/MM3 (0-0.9); NEUT % 67.3 % (16.0-70.0); PLATELET COUNT 240 TH/MM3 (150-450); RED BLOOD COUNT 3.89 MIL/MM3 (4.00-5.30); RED CELL DISTRIBUTION WIDTH 14.2 % (11.6-17.2); WHITE BLOOD COUNT 6.1 TH/MM3 (4.0-11.0)
[2017-07-17] MEDS: THIAMINE HCL 100 MG TAB PO SCH (07:47)
[2017-07-17] MEDS: levETIRAcetam 500 MG TAB PO SCH ×2 (07:47→22:21)
[2017-07-17] MEDS: FOLIC ACID 1 MG TAB PO SCH (07:47)
[2017-07-17 07:48] LABS: BICARBONATE 32.5 MEQ/L (21.0-32.0); CREATININE 0.61 MG/DL (0.50-1.00)
[2017-07-17] MEDS: SODIUM CHLORIDE 0.9% FLUSH 10 ML FLUSH IV FLUSH SCH ×2 (07:48→22:23)
--- NOTE | 2017-07-17 08:15 | HHI.PR ---
Subjective Remarks dictation system not working she had episode of confusion last week with nl ctax2 and nl mri was called a stroke alert then went home on thyroid med not on asa yest had fall then 30 min later after hitting head had about 4 spells of shaking all over fairly violent does not remember much about that may have vomitted some hx stm loss started aricept three months ago but not taking regularly sister lives 30 min away got ativan last pm by emt o/e ox3 not day nl exam gait a little wide based plan is eeg and keppra 500 bid may have developed sz d/o Objective Vital Signs Date Time Temp Pulse Resp B/P (MAP) Pulse Ox O2 Delivery O2 Flow Rate FiO2 07/17/17 07:59 98.0 58 18 136/65 (88) 95 07/17/17 04:30 98.4 60 17 127/81 (96) 98 07/17/17 00:06 97.6 75 17 155/77 (103) 98 07/16/17 20:49 98.4 54 18 141/66 (91) 98 07/16/17 20:31 07/16/17 18:01 97.8 58 16 145/64 (91) 99 Nasal Cannula 2.00 07/16/17 16:22 97.8 60 17 147/65 (92) 100 Nasal Cannula 2.00 07/16/17 14:43 58 20 147/65 (92) 100 Nasal Cannula 2.00 07/16/17 14:30 58 20 169/86 (113) 99 Nasal Cannula 2.00 07/16/17 14:09 98 Nasal Cannula 2.00 07/16/17 14:09 20 98 Nasal Cannula 2.00 07/16/17 14:02 58 18 98 Nasal Cannula 2.00 07/16/17 14:02 97.8 58 17 169/86 (113) 98 I/O 07/16/17 07/16/17 07/16/17 07/17/17 07/17/17 07/17/17 07:00 15:00 23:00 07:00 15:00 23:00 Intake Total 1000 ml 240 ml Balance 1000 ml 240 ml Intake Oral 240 ml IV Total 1000 ml # Voids 1 2 1 # Bowel Movements 1 Result Diagram: 07/17/17 0650 07/17/17 0650 Bernardo Frausto MD Jul 17, 2017 08:15
[2017-07-17] MEDS ORDERED: GADODIAMIDE PF 287 MG/ML 10 ML VIAL (for RAD MRI) IVCONTRAST ONE (09:32)
--- NOTE | 2017-07-17 09:56 | RADRPT ---
EXAM DATE/TIME: 07/17/2017 09:20 [facility] COMPARISON: MRI BRAIN W/O CONTRAST, July 10, 2017, 10:24. CT BRAIN W/O CONTRAST, July 16, 2017, 14:13. INDICATIONS : Frequent falls. Possible seizure. CONTRAST: 10 cc Omniscan (gadodiamide) IV MEDICAL HISTORY : Hyperparathyroidism. SURGICAL HISTORY : Tonsillectomy. Appendectomy. ENCOUNTER: Initial ACUITY: 2 day PAIN SCORE: 0/10 LOCATION: cranial TECHNIQUE: Multiplanar, multisequence MRI of the brain was performed both prior to and following the administrat ion of paramagnetic contrast. FINDINGS: There is no evidence for intracranial hemorrhage, mass effect, mass lesions, edema, or extra-axial fl uid collections. There are no signs of acute infarction for technique. The diffusion portion, and po stcontrast portion are unremarkable. Slight degree of brain atrophy is seen. Slight periventricular w jairo matter changes are seen nonspecific mostly consistent with chronic small vessel ischemic changes . CONCLUSION: Chronic atrophic and small vessel ischemic changes without any evidence for acute hemorrhage or mass effect not significantly changed. Alta Mast MD on July 17, 2017 at 9:44 Board Certified Radiologist. This report was verified electronically.
[2017-07-17 11:49] LABS: TROPONIN I LESS THAN 0.02 NG/ML (0.02-0.05)
--- NOTE | 2017-07-17 12:53 | EKG ---
Date Performed: 07/16/2017 Time Performed: 14:40:56 PTAGE: 82 years EKG: SINUS BRADYCARDIA PATTERN CONSISTENT WITH PULMONARY DISEASE LEFT ANTERIOR FASCICULAR BLOCK ABNORMAL ECG Since PREVIOUS TRACING , no significant change noted PREVIOUS TRACIN07/09/2017 20.28 DOCTOR: Parminder Lilly Interpretating Date/Time 07/17/2017 12:51:39
--- NOTE | 2017-07-17 15:35 | HHI.PR ---
Subjective Remarks Patient says she is feeling right. Denies any chest pain or shortness of breath. No seizures noted. Discussed with nursing. Discussed with Sister. at bedside. Objective Vital Signs Date Time Temp Pulse Resp B/P (MAP) Pulse Ox O2 Delivery O2 Flow Rate FiO2 07/17/17 12:56 60 07/17/17 12:43 98.0 59 18 131/60 (83) 97 139/79 (99) 138/62 (87) 07/17/17 07:59 98.0 58 18 136/65 (88) 95 07/17/17 04:30 98.4 60 17 127/81 (96) 98 07/17/17 00:06 97.6 75 17 155/77 (103) 98 07/16/17 20:49 98.4 54 18 141/66 (91) 98 07/16/17 20:31 07/16/17 18:01 97.8 58 16 145/64 (91) 99 Nasal Cannula 2.00 07/16/17 16:22 97.8 60 17 147/65 (92) 100 Nasal Cannula 2.00 I/O 07/16/17 07/16/17 07/16/17 07/17/17 07/17/17 07/17/17 07:00 15:00 23:00 07:00 15:00 23:00 Intake Total 1000 ml 240 ml Balance 1000 ml 240 ml Intake Oral 240 ml IV Total 1000 ml # Voids 1 2 3 # Bowel Movements 1 1 Result Diagram: 07/17/17 0650 07/17/17 0650 Objective Remarks GENERAL: Patient lying in bed. Appears comfortable. SKIN: Warm and dry. HEAD: Normocephalic. EYES: No scleral icterus. No injection or drainage. NECK: Supple, trachea midline. No JVD or lymphadenopathy. CARDIOVASCULAR: Regular rate and rhythm without murmurs, gallops, or rubs. RESPIRATORY: Breath sounds equal bilaterally. No accessory muscle use. GASTROINTESTINAL: Abdomen soft, non-tender, nondistended. MUSCULOSKELETAL: No cyanosis, or edema. BACK: Nontender without obvious deformity. No CVA tenderness. A/P Assessment and Plan 82 y/o female with a history of Dementia, and hypothyroid presented to the ED after she had a fall and seizure activity. //Seizures new onset, possible ETOH withdrawal vs head injury, patient states she didn't have a drink the past couple nights //Head CT reviewed and shows no acute abnormality -Keppra IV x 1 -Ativan IV PRN -Seizure precautions -Consult neurology for recommendation -EEG ordered = EEG pending. Echocardiogram pending. Neurology following. Continue Keppra. Continue to monitor closely. Appreciate assistance. //Hypothyroid, TSH 15.5 -T4 ordered -Suspect poor compliance. Continue home medication //EtOH abuse -[facility] protocol -Withdrawal precautions -Folate and thiamine ordered //DVT prophylaxis: SCDs Discharge Planning Pending EEG, echocardiogram, neurology clearance. Duran Quintero MD Jul 17, 2017 15:35
[2017-07-18 00:30] VITALS: PULSE 57
[2017-07-18 00:35] VITALS: BP 131/64; PULSE 73; RESP 18; TEMP 97.8; O2SAT 97
[2017-07-18 05:13] VITALS: BP 155/70; PULSE 60; RESP 18; TEMP 97.6; O2SAT 98
[2017-07-18] MEDS: LEVOTHYROXINE SODIUM 75 MCG TAB PO SCH (05:27)
[2017-07-18] MEDS: FOLIC ACID 1 MG TAB PO SCH (07:26)
[2017-07-18] MEDS: SODIUM CHLORIDE 0.9% FLUSH 10 ML FLUSH IV FLUSH SCH (07:26)
[2017-07-18] MEDS: THIAMINE HCL 100 MG TAB PO SCH (07:26)
[2017-07-18] MEDS: levETIRAcetam 500 MG TAB PO SCH (07:26)
--- NOTE | 2017-07-18 07:28 | HHI.PR ---
Subjective Remarks dictation system not working she had episode of confusion last week with nl ctax2 and nl mri was called a stroke alert then went home on thyroid med not on asa yest had fall then 30 min later after hitting head had about 4 spells of shaking all over fairly violent does not remember much about that may have vomitted some hx stm loss started aricept three months ago but not taking regularly sister lives 30 min away got ativan last pm by emt o/e ox3 not day nl exam gait a little wide based plan is eeg and keppra 500 bid may have developed sz d/o 07/18/17 no more spells feels well sr Objective Vital Signs Date Time Temp Pulse Resp B/P (MAP) Pulse Ox O2 Delivery O2 Flow Rate FiO2 07/18/17 05:13 97.6 60 18 155/70 (98) 98 07/18/17 00:35 97.8 73 18 131/64 (86) 97 07/18/17 00:30 57 07/17/17 20:30 63 07/17/17 20:10 97.4 66 18 125/63 (83) 97 07/17/17 16:49 64 07/17/17 15:58 97.2 57 18 133/65 (87) 96 156/66 (96) 136/67 (90) 07/17/17 12:56 60 07/17/17 12:43 98.0 59 18 131/60 (83) 97 139/79 (99) 138/62 (87) 07/17/17 07:59 98.0 58 18 136/65 (88) 95 I/O 07/17/17 07/17/17 07/17/17 07/18/17 07/18/17 07/18/17 07:00 15:00 23:00 07:00 15:00 23:00 Intake Total 240 ml 300 ml Balance 240 ml 300 ml Intake Oral 240 ml 300 ml # Voids 2 3 2 1 # Bowel Movements 1 1 Result Diagram: 07/17/17 0650 07/17/17 0650 Objective Remarks alert and oriented Assessment and Plan Assessment and Plan imp prbable sz on keppra doing well mri neg lab neg eeg some prominent left alpha ow neg standing bp ok ok to dc i think if her sister could watch her for a week she could go back home fu with me in 2 weeks Bernardo Frausto MD Jul 18, 2017 07:28
[2017-07-18 08:00] VITALS: BP 145/75; PULSE 65; RESP 18; TEMP 97.5; O2SAT 97
--- NOTE | 2017-07-18 08:06 | MG ---
cc: LUI MEDINA Lab No: [id number] Date: 07/17/2017 Age: 82 Sex: F Race: 82-year-old woman. Some shaking witnessed by her sister. Jay. The recording shows a symmetric 9 Hz 60 microvolt posterior rhythm. A little bit of prominent 8 Hz rhythms are seen over the left central head region but no epileptiform or seizure activity is seen there. Photic stimulation was performed without significant posterior driving. IMPRESSION Some mild prominent left temporal alpha rhythms, otherwise essentially normal EEG. MD TYSON Howard/TLL /7:50 PM /7:59 AM
[2017-07-18 10:24] VITALS: PULSE 55
[2017-07-18] MEDS ORDERED: LEVE500 PO (10:29)
[2017-07-18] MEDS ORDERED: THIA100 PO (10:29)
--- NOTE | 2017-07-18 11:28 | HHI.FF ---
Face to Face Verification Diagnosis: (1) Cognitive impairment (2) New onset seizure Physical Therapy Order: Evaluate and Treat Home Health Nursing Order: Medical education Instructions: need nurse for med management Pals Nurse Order: To Provide: Long range planning I have seen patient Michelle Padilla on 07/18/17. My clinical findings support the need for the requested home health care services because: Deconditioned w/ increased weakness Med compliance is questionable Limited ability to care for self I certify that my clinical findings support that this patient is homebound because: Unsafe to leave home unassisted Duran Quintero MD Jul 18, 2017 11:28
--- NOTE | 2017-07-18 11:54 | HHI.DS ---
Discharge Summary Admission Date Jul 16, 2017 at 16:51 Discharge Date: Jul 18, 2017 Admitting Diagnosis multiple seizures (1) New onset seizure ICD Code: R56.9 - Unspecified convulsions Status: Acute Procedures No invasive procedures Brief History - From Admission 82 y/o female with a history of Dementia, and hypothyroid presented to the ED after she had a fall and seizure activity. Patient states she was walking outside when she tripped on some jayesh and fell, hitting the right side of her head. She states she was told she had a seizure. Per EMS report patient had 4 seizures in route with Ativan given. Per ER physician the patient's sister said she might have fallen in the house. Patient states prior to fall she was a little dizzy. Denies any chest pain or sob. She was seen by her neurologist outpatient and was started on Aricept 3 days ago. Patient also states she drinks every day but has not had a drink in 2 days. CBC/BMP: 07/17/17 0650 07/17/17 0650 Significant Findings Laboratory Tests Test 07/16/17 14:25 07/16/17 14:28 07/16/17 14:40 07/17/17 06:50 White Blood Count 11.1 TH/MM3 (4.0-11.0) Neutrophils (%) (Auto) 76.1 % (16.0-70.0) Neutrophils # (Auto) 8.4 TH/MM3 (1.8-7.7) Activated Partial Thromboplast Time 23.0 SEC (24.3-30.1) Random Glucose 165 MG/DL (74-106) Calcium Level 8.4 MG/DL (8.5-10.1) 8.0 MG/DL (8.5-10.1) Estimat Glomerular Filtration Rate 77 ML/MIN (>89) Troponin I LESS THAN 0.02 NG/ML Thyroid Stimulating Hormone 3rd Gen 15.500 uIU/ML (0.358-3.740) Urine Protein 30 mg/dL (NEG-TRACE) Urine Mucus FEW /lpf (OCC) Red Blood Count 3.89 MIL/MM3 (4.00-5.30) Monocytes (%) (Auto) 9.9 % (0.0-8.0) Carbon Dioxide Level 32.5 MEQ/L (21.0-32.0) Anion Gap 3 MEQ/L (5-15) Test 07/17/17 10:35 Troponin I LESS THAN 0.02 NG/ML PE at Discharge GENERAL: Patient sitting up in chair. Appears comfortable. SKIN: Warm and dry. HEAD: Normocephalic. EYES: No scleral icterus. No injection or drainage. NECK: Supple, trachea midline. No JVD. CARDIOVASCULAR: Regular rate and rhythm without murmurs, gallops, or rubs. RESPIRATORY: Breath sounds equal bilaterally. No accessory muscle use. GASTROINTESTINAL: Abdomen soft, non-tender, nondistended. MUSCULOSKELETAL: No cyanosis, or edema. BACK: Nontender without obvious deformity. No CVA tenderness. Pt update on day of discharge Patient seen this morning around 10 AM, as well as 11:30 AM. Patient says she is feeling well. Walked with PT this morning. Denies any lightheadedness or dizziness. Denies any chest pain or shortness breath. Feels like going home with sister. I had extensive discussion with sister. Sister says the patient was not taking her medications at home. Sr. denies any history of heavy drinking. Hospital Course Patient was admitted, started on Keppra for seizures. Neurology was consulted. MRI with chronic microvascular ischemic changes. EEG with absence of any epileptiform activity. Patient relating well in hallway. Was discharged home with sister, home health for medication management. Strongly recommend avoiding any alcohol in the future given past history of intoxication on previous admissions. for Problem-based summary from most recent progress note, please see below. 82 y/o female with a history of Dementia, and hypothyroid presented to the ED after she had a fall and seizure activity. //Seizures new onset, possible ETOH withdrawal vs head injury, patient states she didn't have a drink the past couple nights //Head CT reviewed and shows no acute abnormality -Keppra IV x 1 -Ativan IV PRN -Seizure precautions -Consult neurology for recommendation -EEG ordered = EEG pending. Neurology following. Continue Keppra. Continue to monitor closely. Appreciate assistance. = EEG without deformity activity. Discharge home. Follow with neurology as outpatient //Hypothyroid, TSH 15.5 -T4 ordered -Or compliance at home. Continue home medication //EtOH abuse -[facility] protocol -Withdrawal precautions -Folate and thiamine ordered = Discussed extensively with sister. On 07/09, Patient had an alcohol level of 213 which is almost 3 times a legal limit. Strongly advise against any alcohol intake whatsoever. //DVT prophylaxis: SCDs Pt Condition on Discharge: Good Discharge Disposition: Disch w/ Home Health Serv Discharge Time: > 30 minutes Discharge Instructions DIET: Follow Instructions for: As Tolerated, No Restrictions Activities you can perform: Regular-No Restrictions Activities to Avoid: Driving Other Activity Instructions: no driving until cleared by neurology. Follow up Referrals: Neurology - 1 Week with Bernardo Frausto MD PCP Follow-up - 1 Week with Richard Hutchison M.d. New Medications: Levetiracetam (Keppra) 500 Mg Tab 500 MG PO Q12HR for Seizure Control for 30 Days, TAB Thiamine HCl (Gnp Vitamin B-1) 100 Mg Tab 100 MG PO DAILY for vitamin for 30 Days, #30 TAB Continued Medications: Levothyroxine (Synthroid) 75 Mcg Tab 75 MCG PO DAILY for Thyroid, #30 TAB 0 Refills Duran Quintero MD Jul 18, 2017 11:53
== END 2017-07-18 11:51 | disposition home or self-care (01) | DRG 101 ==
LOC: NEPE 13:52 → NEDA 16:51 → N05B 20:25 → N05A 07-17 15:39
PROVIDERS: ADMIT Internal Medicine; ATTEND Internal Medicine
DX: R56.9 Unspecified convulsions (principal); F03.90 Unspecified dementia, unspecified severity, without behavioral disturbance, psychotic disturbance, mood disturbance, and anxiety; E03.9 Hypothyroidism, unspecified; F10.10 Alcohol abuse, uncomplicated; Y93.01 Activity, walking, marching and hiking; W01.0XXA Fall on same level from slipping, tripping and stumbling without subsequent striking against object, initial encounter
CPT/HCPCS: 70450; 70553; 80048; 80053; 80307; 81001; 82607; 83605; 84425; 84439; 84443; 84484; 85025; 85610; 85652; 85730; 86592; 93005; 95819; 96360; A9579; J1953; J7030; P9612

== ENCOUNTER 2017-08-07 12:56 | Emergency (ER) | payer MEDICARE, OTHER ==
[~2017-08-07] VITALS: Ht 165.1 cm; Wt 48.0 kg
[~2017-08-07 12:56] MED LIST changes: +LEVE500 PO; +THIA100 PO
[2017-08-07 12:59] VITALS: BP 149/102; PULSE 64; RESP 15; TEMP 97.5; O2SAT 99
--- NOTE | 2017-08-07 13:20 | PD ---
HPI Chief Complaint: Nosebleed Time Seen by Provider: 13:06 Travel History International Travel<30 days: No Contact w/Intl Traveler<30days: No Traveled to known affect area: No History of Present Illness HPI The patient is a 82-year-old who presents to the emergency department for nose bleed. The patient states the nosebleed started earlier today, out of the left naris, denies any trauma to the nose. The patient does take surround toe. The patient called fire rescue earlier today, however, when they arrived her nosebleed had resolved. The patient then blew her nose and the bleeding resumed , she called 911, they advised her to come to the emergency department to have her nose cauterized. The patient denies any trauma to the nose and denies any history of repetitive nosebleeds. She denies any headache, chest pain, shortness breath, nausea, vomiting, or abdominal pain. She denies any other easy bruising. PFSH Past Medical History Hx Anticoagulant Therapy: Yes (XARELTO) Asthma: No Blood Disorders: No Heart Rhythm Problems: No Cancer: No Cardiovascular Problems: No High Cholesterol: No Chemotherapy: No Chest Pain: No Congestive Heart Failure: No COPD: No Diabetes: No Diminished Hearing: No Endocrine: Yes Genitourinary: No Immune Disorder: No Musculoskeletal: No Neurologic: No Psychiatric: No Reproductive: No Respiratory: No Radiation Therapy: No Sleep Apnea: No Thyroid Disease: Yes (HYPERPARATHYROID) Past Surgical History Abdominal Surgery: Yes Other Surgery: Yes (APPENDECTOMY AND TONSILLECTOMY) Social History Alcohol Use: Yes (ocassionally) Tobacco Use: No Substance Use: No Allergies-Medications (Allergen,Severity, Reaction): Coded Allergies: No Known Allergies (Verified Allergy, Unknown, 07/16/17) Reported Meds & Prescriptions Reported Meds & Active Scripts Active Gnp Vitamin B-1 (Thiamine HCl) 100 Mg Tab 100 Mg PO DAILY 30 Days Keppra (Levetiracetam) 500 Mg Tab 500 Mg PO Q12HR 30 Days Reported Synthroid (Levothyroxine Sodium) 75 Mcg Tab 75 Mcg PO DAILY Review of Systems Except as stated in HPI: all other systems reviewed are Neg General / Constitutional: No: Fever HENT: Positive: Nosebleed, No: Headaches Cardiovascular: No: Chest Pain or Discomfort Respiratory: No: Shortness of Breath Gastrointestinal: No: Nausea Neurologic: No: Dizziness Physical Exam Narrative GENERAL: Awake, alert, pleasant 82-year-old female who appears her stated age and is in no acute respiratory distress. SKIN: Focused skin assessment warm/dry. HEAD: Atraumatic. Normocephalic. EYES: Pupils equal and round. No scleral icterus. No injection or drainage. ENT: Bleeding from the left nares noted. No visible bleeding from the right near. NECK: Trachea midline. No JVD. CARDIOVASCULAR: Regular rate and rhythm. No murmur appreciated. RESPIRATORY: No accessory muscle use. Clear to auscultation. Breath sounds equal bilaterally. MUSCULOSKELETAL: No obvious deformities. No clubbing. No cyanosis. No edema. NEUROLOGICAL: Awake and alert. No obvious cranial nerve deficits. Motor grossly within normal limits. Normal speech. Nonfocal. PSYCHIATRIC: Appropriate mood and affect; insight and judgment normal. Data Data Last Documented VS Vital Signs Date Time Temp Pulse Resp B/P (MAP) Pulse Ox O2 Delivery O2 Flow Rate FiO2 08/07/17 15:06 63 17 174/77 (109) 99 Room Air 08/07/17 12:59 97.5 Orders Orders Phenylephrine 1% Alberto Spr (Neosynephrine (08/07/17 13:30) MDM Medical Decision Making Medical Screen Exam Complete: Yes Emergency Medical Condition: Yes Medical Record Reviewed: Yes Differential Diagnosis Differential diagnosis includes anterior epistaxis, posterior epistaxis, medication side effect, coagulopathy, hypertensive urgency, thrombocytopenia. Narrative Course Direct pressure was held to the nose using tongue depressors that were taped together. Hira-Synephrine was ordered for the left nare. The patient was reevaluated after 15 minutes, the bleeding started once again. One spray of Hira -Synephrine was applied to the left naris. Pressure was held again for 30 minutes. It was removed, there is no further bleeding. The patient was given francisco javier crackers and saltines, was monitored for 45 minutes, there is no further bleeding. She will be discharged home. She is advised to hold Xarelto today and follow-up with her primary physician tomorrow. Diagnosis Primary Impression: Epistaxis Patient Instructions: General Instructions Additional Instructions: Hold pressure if symptoms return. If bleeding continues after 30 minutes of holding pressure, return to the emergency department for reevaluation. Hold Xarelto today and follow-up with your primary physician tomorrow. Med/Other Pt SpecificInfo: Other (hold Xarelto today) Disposition: 01 DISCHARGE HOME Condition: Stable Anant Valdivia MD Aug 07, 2017 13:20
[2017-08-07] MEDS ORDERED: PHENYLEPHRINE HCL 1% NASAL SPRAY 15 ML BTL NASAL ONE (13:30)
[2017-08-07 15:06] VITALS: BP 174/77; PULSE 63; RESP 17; O2SAT 99
[2017-08-07 15:25] VITALS: BP 171/77; PULSE 65; RESP 17; O2SAT 99
[2017-08-07 16:49] VITALS: BP 180/77; PULSE 64; RESP 17; O2SAT 99
[2017-08-07] MEDS ORDERED: NORC5TAB PO (17:14)
[2017-08-07] MEDS ORDERED: ACETAMINOPHEN/HYDROcodone 325 MG/5 MG TAB PO ONE (17:15)
== END 2017-08-07 17:27 | disposition home or self-care (01) ==
LOC: NEPC 12:56
DX: R04.0 Epistaxis (principal); E21.3 Hyperparathyroidism, unspecified; Z79.899 Other long term (current) drug therapy
CPT/HCPCS: 30901